=== PATIENT | female | born 1990 | race African-American/Black ===

== ENCOUNTER 2022-04-13 21:32 | Emergency (ER) | payer OTHER, MEDICARE, SELFPAY ==
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
--- NOTE | ~2022-04-13 | XR_ITS ---
EXAMINATION: XR shoulder LT min 2V DATE: 04/14/2022 01:44 INDICATION: Left shoulder pain TECHNIQUE: AP internally and externally rotated, AP oblique externally rotated and transscapular Y vi ews of the left shoulder were obtained. COMPARISON: None FINDINGS: Normal alignment. No fracture. Glenohumeral joint is normal. Acromioclavicular joint is normal. Soft tissues are unremarkable. Visualized portions of the lungs are clear. Cardiomediastinal silhouette w ithin normal limits for AP technique. Median sternotomy wires are present along with a single lead ca rdiac pacemaker/defibrillator with lead tip projecting over the right ventricle. IMPRESSION: No osseous abnormality. Reviewed, dictated and finalized at location A. IMPRESSION: No osseous abnormality.
[2022-04-13 22:07] VITALS: BP 130/65; PULSE 60; RESP 16; TEMP 36.7; O2SAT 100
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
[2022-04-14 01:56] VITALS: BP 116/53; PULSE 54; RESP 16; O2SAT 100
[2022-04-14] MEDS: ACETAMINOPHEN 500 MG TABLET 1000 MG PO (01:58)
[2022-04-14 03:41] VITALS: BP 114/56; PULSE 62; RESP 16; O2SAT 100
== END 2022-04-14 03:42 | disposition home or self-care (01) ==
PROVIDERS: Emergency Provider General Practice
DX: S16.1XXA Strain of muscle, fascia and tendon at neck level, initial encounter (principal); V43.52XA Car driver injured in collision with other type car in traffic accident, initial encounter; Z95.0 Presence of cardiac pacemaker
CPT/HCPCS: 72125; 73030; 99284; A9270

== ENCOUNTER 2023-11-27 22:28 | Emergency (ER) | payer MEDICARE, SELFPAY ==
[2023-11-27 22:34] VITALS: BP 131/63; PULSE 81; RESP 19; TEMP 36.6; O2SAT 100
[2023-11-27 22:59] LABS: Add Urine Microscopic? YES; Appearance Urine Turbid (Clear); Bacteria Urine 4+ /hpf; Bilirubin Urine Negative (Negative); Blood Urine 3+ (Negative); Color Urine Yellow (Yellow); Glucose Urine UA Negative (Negative); Ketones Urine Negative (Negative); Leukocyte Esterase Ur 3+ LEU/UL (Negative); Nitrate Urine Positive (Negative); Non Pathogenic Casts 0-2; Protein Urine 2+ mg/dL (Negative); RBC Urine >100 /hpf (0-2); Specific Grav Ur 1.014 (1.001-1.035); Squamous Epithelial Cell Urine Occasional /hpf (Few); WBC Urine >100 /hpf
--- NOTE | 2023-11-27 23:29 | ED.GENADULT ---
HPI - General Adult General Chief complaint: Urogenital-Female Stated complaint: burning with urination, abd pain Time Seen by Provider: 11/27/23 22:56 History of Present Illness HPI narrative: this is a 33-year-old female presenting with pain on urination. Associated with left-sided flank pain. denies nausea/diarrhea. She has history of UTIs. Related Data Allergies Allergy/AdvReac Type Severity Reaction Status Date / Time No Known Allergies Allergy Verified 11/27/23 22:29 Exam Narrative: APPEARANCE: No apparent distress. well-appearing Head: atraumatic. EYES: EOMI, NOSE: Atraumatic NECK: Trachea midline RESPIRATORY: No increased rate of breathing CARDIOVASCULAR: RRR, ABDOMINAL: Abdomen soft nontender no guarding rebound, left CVA tenderness MUSCULOSKELETAl: No obvious deformities NEURO: Alert. Moving 4/4 extremities SKIN:: Warm, dry. Normal color PSYCHIATRIC: Normal affect Course Vital Signs Vital signs: Vital Signs Temperature 97.9 F 11/27/23 22:34 Pulse Rate 81 11/27/23 22:34 Respiratory Rate 19 11/27/23 22:34 Blood Pressure 131/63 11/27/23 22:34 Pulse Oximetry 100 11/27/23 22:34 Oxygen Delivery Room Air 11/27/23 22:34 Temperature 97.9 F 11/27/23 22:34 Pulse Rate 81 11/27/23 22:34 Respiratory Rate 19 11/27/23 22:34 Blood Pressure 131/63 11/27/23 22:34 Pulse Oximetry 100 11/27/23 22:34 Oxygen Delivery Room Air 11/27/23 22:34 Medical Decision Making [facility] Narrative Medical decision making narrative: -Course: well-appearing 33-year-old female presenting with urinary symptoms at left-sided CVA pain. Treated with cefdinir. Vital signs stable. Discharged with outpatient follow-up return precautions. -DDX includes but is not limited to: UTI, pyelo, STD muscle strain -Co-morbidities complicating care: breast-feeding -Independent interpretation of studies: urine indicative of infection -Interventions: cefdinir -Shared decision making / Disposition:discharged. -RX Cefdinir 300 mg b.i.d. times 10 days Vital Signs Vital Signs: Vital Signs Temperature 97.9 F 11/27/23 22:34 Pulse Rate 81 11/27/23 22:34 Respiratory Rate 19 11/27/23 22:34 Blood Pressure 131/63 11/27/23 22:34 Pulse Oximetry 100 11/27/23 22:34 Oxygen Delivery Room Air 11/27/23 22:34 Temperature 97.9 F 11/27/23 22:34 Pulse Rate 81 11/27/23 22:34 Respiratory Rate 19 11/27/23 22:34 Blood Pressure 131/63 11/27/23 22:34 Pulse Oximetry 100 11/27/23 22:34 Oxygen Delivery Room Air 11/27/23 22:34 Lab Data Labs: Lab Results 11/27/23 Range/Units 22:36 Urine Color Yellow (Yellow) Urine Appearance Turbid H (Clear) Urine pH 6.0 (5.0-9.0) Ur Specific [place] 1.014 (1.001-1.035) Urine Protein 2+ H (Negative) mg/dL Urine Glucose (UA) Negative (Negative) mg/dL Urine Ketones Negative (Negative) mg/dL Ur Blood (Man) 3+ H (Negative) Urine Nitrate Positive H (Negative) Urine Bilirubin Negative (Negative) Urine Urobilinogen 1.0 (<2.0) mg/dL Leukocyte Esterase Rfl 3+ H (Negative) FELIPA/UL Urine RBC >100 H (0-2) /hpf Urine WBC >100 H /hpf Ur Squamous Epith Cells Occasional (Few) /hpf Urine Bacteria 4+ H /hpf Urine Casts 0-2 UCG Bedside Result Negative Reference Range: Negative Discharge Plan Discharge Clinical Impression: Pyelonephritis Patient Disposition: Home, Self-Care Condition: Stable Instructions: Antibiotic Form, Kidney Infection (ED) Additional Instructions: take cefdinir as instructed. Use Motrin and Tylenol for pain control. Return to the emergency department if you develop severe abdominal pain, are unable tolerate p.o., or feel like your condition is getting worse. Follow-up with primary care physician. Prescriptions: New cefdinir 300 mg capsule 300 mg PO Q12H Qty: 20 0RF Fol
[2023-11-27] MEDS: CEFDINIR 300 MG CAPSULE PO (23:48)
[2023-11-27 23:49] VITALS: BP 128/70; PULSE 80; RESP 18; O2SAT 99
== END 2023-11-27 23:51 | disposition home or self-care (01) ==
LOC: ANHED 23:37
PROVIDERS: Physician Assistant; Emergency Provider Emergency Medicine
DX: N12 Tubulo-interstitial nephritis, not specified as acute or chronic (principal)
CPT/HCPCS: 81001; 81025; 87077; 87086; 87088; 87186; 99283; A9270

== ENCOUNTER 2024-10-18 00:37 | Emergency (ER) | payer MEDICARE, SELFPAY ==
--- NOTE | ~2024-10-18 | CT_ITS ---
EXAMINATION: CT chest abdomen pelvis w con DATE: 10/18/2024 6:32 [employer] INDICATION: Chest and abdomen pain. TECHNIQUE: Computed tomography (CT) of the chest, abdomen, and pelvis was performed with 100 cc Omnip aque 350 intravenous contrast. The dose-length product was 398.84 mGy-cm. Automated exposure control and iterative reconstruction technique were employed. COMPARISON: None FINDINGS: CHEST CT: Borderline heart size. No thoracic lymphadenopathy. No evidence for aortic aneurysm or dissection. No significant pleural or pericardial effusion. There is a left-sided AICD, lead tip in the right ventr icle.. Status post median sternotomy for CABG. No focal airspace consolidation. No pneumothorax. No e ndobronchial lesions. No suspicious pulmonary nodules or masses. ABDOMEN/PELVIS CT: The liver, spleen, pancreas, adrenal glands and kidneys are unremarkable. Gallbladder is present. Non obstructive bowel gas pattern. No abnormal pelvic masses or fluid collections. No acute osseous abnor mality. IMPRESSION: 1. No acute abnormality of the chest or abdomen. Reviewed, dictated and finalized at location A. [employer]
--- NOTE | 2024-10-18 00:38 | ECG_ITS ---
Test Date: 2024-10-18 00:46:33 Measurements Intervals [place] Rate: 60 P: 7 RI: 164 QRS: 101 QRSD: 176 T: 85 QT: 458 QTc: 458 Interpretive Statements SINUS RHYTHM MARKED RIGHT AXIS DEVIATION [QRS AXIS > 100] RIGHT BUNDLE BRANCH BLOCK [120+ ms QRS DURATION, UPRIGHT V1, 40+ ms S IN I/aVL/V4/V5/V6] No previous ECG available for comparison Electronically Signed On 10-18-2024 15:56:35 BLOGS MANAGER by Mario Chaidez M.D.
--- OUTSIDE RECORDS SUMMARY | 2024-10-18 00:40 | XMS_ITS | Referral Summary ---
Author Organization [facility] Address [address] [place] [address] Care Team Providers Care Expansion Envelope Maker Hand Name Role Phone Lisa Mehta NP Primary Care Provider [phone] Syeda Vidal BLUEPRINTER Unavailable [phone] Encounters Date Type Department Care Team Description 10/17/2024 Telephone [facility] Primary Care at [address] [phone] Lisa Mehta NP Medical Question/Miscellane ous 10/04/2024 10:59 AM PYTHON DEVELOPER - 10/04/2024 11:59 PM PYTHON DEVELOPER Hospital Encounter [facility] Cardiac Diagnostic Lab [address] [address] 8th [place] [address] Tetralogy of Fallot s/p repair Discharge Disposition: Discharge to home or self care 09/26/2024 Orders Only [facility] Cardiology [address] [facility] 8th [place] [address] [place] [address] Jesse Matos MD 08/10/2024 Orders Only [facility] Primary Care at [address] [phone] Lisa Mehta NP 08/09/2024 8:48 PM PYTHON DEVELOPER - 08/09/2024 11:59 PM PYTHON DEVELOPER Hospital Encounter [address] [address] Iron deficiency; Vitamin D deficiency; Thyroid disorder screen; Lipid screening; Screening for endocrine, nutritional, metabolic and immunity disorder Discharge Disposition: Discharge to home or self care 08/09/2024 11:45 AM PYTHON DEVELOPER Lab [facility] Outpatient Lab at [address] [phone] Anxiety with depression (Primary Dx) 08/09/2024 11:30 AM PYTHON DEVELOPER Office Visit [facility] Primary Care at [address] [phone] Lisa Mehta NP Anxiety with depression (Primary Dx); Body aches; Iron deficiency; Screening for endocrine, nutritional, metabolic and immunity disorder; Lipid screening; Thyroid disorder screen; Vitamin D deficiency 07/31/2024 3:39 PM PYTHON DEVELOPER - 07/31/2024 11:59 PM PYTHON DEVELOPER Hospital Encounter [address] [address] Tetralogy of Fallot s/p repair Discharge Disposition: Discharge to home or self care 07/31/2024 3:45 PM PYTHON DEVELOPER Lab [facility] Endocrinology Metabolism and Lipid [address] [place] [address] [place] [address] [place] [address] Tetralogy of Fallot s/p repair 07/31/2024 2:30 PM PYTHON DEVELOPER Office Visit [facility] Cardiology [address] [place] [address] [place] [address] [place] [address] Syeda Vidal NP Tetralogy of Fallot s/p repair (Primary Dx); History of pulmonic valve replacement; ICD (implantable cardioverter-defibr illator) in place; Palpitations; Maternal Tetraology of Fallot S/P Repair W/ ICD in place from Last 3 Months Allergies No known active allergies Medications vit 61-grvs-tijul-dha 27mg iron- 800 mcg-250 mg capsule Take by mouth Active lancets 33 gauge miscIndications:H istory of gestational diabetes mellitus (GDM),Supervision of high-risk , first trimester,Abnorma l glucose tolerance test CHECK GLUCOSE FASTING AND ONE HOUR AFTER EACH MEAL 120 each 6 05/06/20 Active Additional Information Patient not taking.Reported on 08/09/2024 Accu-Chek Softclix Lancets lancets CHECK GLUCOSE FASTING AND 1 HOUR AFTER EACH MEAL 05/06/20 Active norethindrone (MICRONOR) 0.35 mg tabletIndications : Contraception Take 1 tablet (0.35 mg total) by mouth daily 84 tablet 3 08/18/20 Active aspirin 81 mg enteric coated tablet Take 1 tablet (81 mg total) by mouth daily Active multivitamin tabletIndications :Vitamin Deficiency Prevention Take 1 tablet by mouth Active ferrous sulfate 325 mg (65 mg of elemental iron) tabletIndications :Iron Deficiency Anemia Take 1 tablet (325 mg total) by mouth daily with breakfast Active ergocalciferol (VITAMIN D) 50,000 unit capsule Take 1 capsule (50,000 Units total) by mouth once a week 12 capsule 1 08/11/20 24 Active buPROPion XL (WELLBUTRIN XL) 150 mg 24 hr tablet Take 1 tablet (150 mg total) by mouth daily 90 tablet 1 10/02/19 25 Active buPROPion XL (WELLBUTRIN XL) 150 mg 24 hr tablet Take 1 tablet (150 mg total) by mouth daily 025 Discontin ued(Reord er) Active Problems Problem Noted Date Diagnosed Date Short cervical length during in second trimester 02/12/2023 Overview (06/18/2023): Cervical length: 02/12/23 21.6 mm. Cervical exam: internally closed 03/12/23: 26.1mm - s/p counseling, declines vaginal progesterone Plan - s/p CL screening Assessment & Plan (02/12/2023 2:48 PM CDT): Cervical length: 02/12/23 21.6 mm. Cervical exam: internally closed Short cervix: We discussed the implications of the diagnosis of a short cervix in women without a history of . We discussed that while the risk of premature delivery increases once the finding of a midtrimester short cervix is confirmed, a large proportion of women will still go on to deliver at term (50- 75%). The only proven strategy to reduce the risk of in the setting of a short cervix diagnosed in a woman with out a history of a is vaginal progesterone. In one randomized control trial vaginal micronized progesterone, 200 mg daily, was associated with a 44% reduction in spontaneous PTB < 34 weeks among asymptomatic women with a CL of 15 mm or less at 18-25 weeks (Kuldeep, 2007). Another study, using a different formulation of progesterone, demonstrated a similar risk reduction in women between 19-24 weeks with a cervical length less than 20 mm (Brian, 2011). - discussed vaginal progesterone therapy. This medication was typically administered at night prior to going to bed. Many women experience an increase in vaginal discharge with the use of this medication but significant side effects are rare. This therapy should be continued until 37 weeks gestation. We also reviewed signs and symptoms of labor that should prompt a phone call to a physician for possible evaluation. Plan - vaginal progesterone 200mg nightly - repeat TVUS every 1-2 weeks until 24 weeks History of section complicating pregnan cy 11/17/2022 Overview (06/02/2023): LTCS in G3 at [facility] for NRFS Plan desires TOLAC, s/p counseling regarding risk of uterine rupture and recommendation for epidural during labor Assessment & Plan (06/18/2023 10:06 AM CDT): LTCS in G3 at [facility] for NRFS Plan desires TOLAC, s/p counseling regarding risk of uterine rupture and recommendation for epidural during labor Assessment & Plan (02/12/2023 2:51 PM CDT): For discussion of TOLAC after viability Low grade squamous intraepit h lesion on cytologic smear cervix (lgsil), HPV Neg 10/28/2022 Overview (06/02/2023): 10/2023 repeat pap due Anxiety with depression 04/26/2022 Overview (06/23/2023): Mostly in the setting of limited partner support Previously saw a therapist and was on wellbutrin- plans to reestablish with therapy Continue to monitor symptoms closely, aware of risk of pp depression/anxiety Assessment & Plan (08/09/2024 12:33 PM PYTHON DEVELOPER): Feels like anxiety has become more apparent with having children. She has Bupropion that was rx'd from OBGYN. She is going to try re-starting and if no improvement we can consider adjusting the dose or trying a different medication. Assessment & Plan (06/23/2023 10:36 AM CDT): 45 minutes providing emotional support today. Encouraged she continue with therapy. Offered restarting meds but pt declines at this time. Will continue to monitor closely. Assessment & Plan (05/28/2022 10:03 PM CDT): PHQ Screening PHQ-2 Total Score (If total score is 3 or more points, staff should administer the PHQ-9): 0 PHQ-9 Total Score: 1, YESSENIA-7 Total Score: 3. Symptoms are improving. SI/HI absent. Likely the etiology of her low libido. - cont therapy. - Discussed that SI is an emergency. Provided with crisis resources. - Counseled regarding strategies to reduce stress including physical activity. Assessment & Plan (04/26/2022 11:02 PM CDT): PHQ Screening PHQ-2 Total Score (If total score is 3 or more points, staff should administer the PHQ-9): 1 PHQ-9 Total Score: 1, YESSENIA-7 Total Score: 2. Symptoms are worsening. SI/HI absent. Likely the etiology of her low libido. - Pt was counseled regarding duration to effect, duration of treatment, side effects including withdrawal. After discussion of treatment approaches for depression, pt gave informed consent to start bupropion . - Recommended therapy and counseling. - Discussed that SI is an emergency. Provided with crisis resources. - Counseled regarding strategies to reduce stress including physical activity. Palpitations 04/26/2018 Assessment & Plan (07/31/2024 3:14 PM PYTHON DEVELOPER): Stable denies increase in frequency. ICD (implantable cardioverter-defibrillator) in place 04/26/2018 Assessment & Plan (07/31/2024 3:12 PM PYTHON DEVELOPER): Stable, no therapies. Sees Dr. Matos in August 2024. Assessment & Plan (09/03/2023 11:55 AM PYTHON DEVELOPER): Stable, no therapies. Saw Dr. Matos in July no changes were made. Recurrent herpes simplex 05/05/2017 Overview (06/18/2023): Last outbreak in 2016. Prescribed acyclovir TID, sent to pt's preferred pharmacy (06/26) - On suppression - physical exam when admitted to L&D Assessment & Plan (06/18/2023 10:05 AM CDT): Last outbreak in 2016. Prescribed acyclovir TID, sent to pt's preferred pharmacy (06/26) - On suppression - physical exam when admitted to L&D Assessment & Plan (02/12/2023 2:47 PM CDT): For suppression at 36 weeks Assessment & Plan (07/25/2021 11:26 AM CDT): - Continue suppression Assessment & Plan (07/21/2021 12:03 AM CDT): Patient to reminded to take acyclovir PPX. Will need bright light exam on admission. 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 She had a pulmonary homograft in November of 2010. 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 She had inducible ventricular arrhythmia in February of 2012, she subsequently received a single-chamber [employer] defibrillator system. This was originally implanted for primary prevention of sudden cardiac . - 2013: 30 weeks and was noted to have an episode of VT terminated with antitachycardia pacing - CARPEG and Stefany scores are 15% and 10%, respectively. - Last ICD check 10/02/22 had rare events -- 1-2 beats nonsustained VT and two episodes of SVT vs sinus tach -- battery and leads work well, follows in cardiac rhythm clinic (Dr. Matos) Recommendations [x] Baseline PEC labs 11/19/22- complete and wnl [x] LD ASA 81mg initiated [x] BNP, Echo qTrimester- 1T complete, 2nd tri BNP: 45 3rd Tri: <50 done 05/20 [x] Specialized anatomic survey [x] echocardiogram nml [] Next cardiology 04/29- pt no showed- rescheduled 06/22 but cancelled again and asked to reschedule- echo completed- 06/18 [x] anesthesia consult 3rd trimester- complete - Serial growth ultrasounds starting at 24 weeks - Delivery by 39 weeks GA- requested Assessment & Plan (07/31/2024 3:17 PM PYTHON DEVELOPER): ToF sp definitive repair in 1990, subsequent PI and RV dilation with mildly reduce RV ejection fraction and 23 mm pulmonary homograft November 2010. With some increased LEE today in clinic NYHA class II findings. (SP delivery 07/07/2023. With increased gradients on 05/2023 ECHO, suspected physiologic in . RV function stable at that time.) Oral contraception, not planning any additional pregnancies. ASA and SBE> ECHO now, Bnp and BMP today. Dr. Joel in 6 months. Assessment & Plan (09/03/2023 11:57 AM PYTHON DEVELOPER): ToF sp definitive repair in 1990, subsequent PI and RV dilation with mildly reduce RV ejection fraction and 23 mm pulmonary homograft November 2010. SP delivery 07/07/2023. With increased gradients on 05/2023 ECHO, physiologic in . RV function stable, with no S/S of heart failure, NYHA class I findings. ASA and SBE ECHO in 6 months, same day as Dr. Joel Assessment & Plan (06/18/2023 10:04 AM CDT): The patient has a history of tetralogy of fallot s/p definitive repair in 1990 with subsequent pulmonary insufficiency and dilated right ventricular systolic function. She had a pulmonary homograft in November of 2010. 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 She had inducible ventricular arrhythmia in February of 2012, she subsequently received a single-chamber [employer] defibrillator system. This was originally implanted for primary prevention of sudden cardiac . - 2014: 30 weeks and was noted to have an episode of VT terminated with antitachycardia pacing - CARPEG and Stefany scores are 15% and 10%, respectively. - Last ICD check 10/02/22 had rare events -- 1-2 beats nonsustained VT and two episodes of SVT vs sinus tach -- battery and leads work well, follows in cardiac rhythm clinic (Dr. Matos) Recommendations [x] Baseline PEC labs 11/19/22- complete and wnl [x] LD ASA 81mg initiated [x] BNP, Echo qTrimester- 1T complete, 2nd tri BNP: 45 3rd Tri: <50 done 05/20 [x] Specialized anatomic survey [x] echocardiogram nml [] Next cardiology 04/29- pt no showed, echo to follow [x] anesthesia consult 3rd trimester- complete - Serial growth ultrasounds starting at 24 weeks - Delivery by 39 weeks GA- requested Assessment & Plan (02/12/2023 3:34 PM CDT): ToF sp definitive repair in 1990, subsequent PI and RV dilation with mildly reduce RV ejection fraction and 23 mm pulmonary homograft November 2010. Now at 18 weeks. With stable RV function and mild PI on ECHO in December 2022. ASA and SBE, BNP today and ECHO at 28 weeks, Dr. Joel same day. Syeda post partaum in July with Dr. Matos same day. Assessment & Plan (02/12/2023 3:01 PM CDT): The patient has a history of tetralogy of fallot s/p definitive repair in 1990 with subsequent pulmonary insufficiency and dilated right ventricular systolic function. ??She had a pulmonary homograft in November of 2010. 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 ??She had inducible ventricular arrhythmia in February of 2012, she subsequently received a single-chamber [employer] defibrillator system. ??This was originally implanted for primary prevention of sudden cardiac . - 2014: 30 weeks and was noted to have an episode of VT terminated with antitachycardia pacing - CARPEG and Stefany scores are 15% and 10%, respectively. - Last ICD check 10/02/22 had rare events -- 1-2 beats nonsustained VT and two episodes of SVT vs sinus tach -- battery and leads work well, follows in cardiac rhythm clinic (Dr. Matos) 02/12/23 saw cardiology: no specific follow-up per Missy' report however their note is not yet available Recommendations [x] Baseline PEC labs 11/19/22- complete and wnl [x] LD ASA 81mg initiated [] BNP, Echo qTrimester- 1T complete, 2nd tri BNP ordered (remind with GTT) [] Specialized anatomic survey [] echocardiogram- 22-24 weeks [] Next cardiology 04/29 - Serial growth ultrasounds starting at 24 weeks -anesthesia consult 3rd trimester - Delivery by 39 weeks GA Assessment & Plan (12/15/2022 2:19 PM CDT): Denies issues today. Has cardiac appt scheduled. Assessment & Plan (01/04/2022 9:32 PM CDT): Status post definitive repair in 1990. Subsequent pulmonic regurgitation and RV dilatation with mildly reduced right ventricular ejection fraction. Pulmonary valve replacement with a 23-mm pulmonary homograft on December 02 2010 together with RVOT reconstruction. - TTE 04/2019 with normal function of bioprosthetic PVR - Cont f/u with cardiology - Cont ASA 81mg every day Assessment & Plan (07/25/2021 11:26 AM CDT): - Following with maternal cardiology - s/p anesthesia consult - Plan for induction of labor on 07/27 Assessment & Plan (07/21/2021 12:01 AM CDT): Asymptomatic. Reviewed that if need for CS, will need magnets in OR with external defibrillating pads with tele for 24h after delivery on L&D. Assessment & Plan (05/15/2021 10:06 AM CDT): Reports heart flutters for the last 2 weeks that last 10-15 minutes at a time. They are not associated with SOB or chest pain but she has noticed increased SOB as the progresses. When she has been on her feet all day she has sock lines. Will discuss with Dr. Galindo prior to her 05/20 visit. Assessment & Plan (04/17/2021 11:33 AM CDT): Continue close monitoring of SOB (stable) and heart flutters. Strict WAC precautions reviewed. Will call if symptoms continue or increase in frequency. Assessment & Plan (06/22/2019 5:28 PM CDT): Status post definitive repair in 1990. Subsequent pulmonic regurgitation and RV dilatation with mildly reduced right ventricular ejection fraction. Pulmonary valve replacement with a 23-mm pulmonary homograft on December 02 2010 together with RVOT reconstruction. - TTE 04/2019 with normal function of bioprosthetic PVR - Cont f/u with Dr. Mcleod - Cont ASA 81mg every day Resolved Problems Problem Noted Date Diagnosed Date Resolved Date care following section 07/06/2023 08/18/2023 Overview (07/11/2023): # ID: Afebrile. No signs/symptoms of infection. #HSV: BLE neg in OR # Heme/PPH: Pre-op Hb 10.8. PPH d/t uterine extension. EBL 1500 mL and received 1 unit pRBC intra-op. POD0 Hb 7.3 and symptomatic. Received 1L bolus and IV iron. POD#1 Hgb 6.1. Symptomatic. Transfused 1 unit pRBC; post-transfusion hgb 7.8 # CV/Pulm: Vital signs stable, within normal limits. # History of tetralogy of fallot s/p definitive repair in 1990 with subsequent pulmonary insufficiency and dilated right ventricular systolic function. She had a pulmonary homograft in November of 2010. 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 She had inducible ventricular arrhythmia in February of 2012, she subsequently received a single-chamber [employer] defibrillator system. This was originally implanted for primary prevention of sudden cardiac . CARPEG and Stefany scores are 15% and 10%, respectively.Last ICD check 10/02/22 had rare events -- 1-2 beats nonsustained VT and two episodes of SVT vs sinus tach -- battery and leads work well, follows in cardiac rhythm clinic (Dr. Matos). Per last cardiology note, telemetry/judicious fluids not required. Pre-load dependent. Volume overload IS NOT anticipated 24-72 hours post-delivery. Last TTE 05/2023 EF 73%, stable from prior. # GI/: Tolerating PO. Voiding spontaneously. # Pain: Controlled with above regimen. Post-anesthesia itching not resolved with benadryl, will try IV Zofran. 07/09 Itching resolved # MOC: Desires nexplanon placement at PP visit, declines bridge # MOF: . Urine drug screen not indicated. Patient informed of results: N/A. # Post DVT prophylaxis: The patient has the following MAJOR risk factors PPH (EBL >/=1000) requiring blood transfusion or procedure (D&C or IR) and cardiac disease and the following MINOR risk factors BMI 30-39, delivery, and parity >/=3. enoxaparin 40 mg daily ordered for VTE prophylaxis. # Disposition: Follow up task sent to [facility] scheduling pool. Desires discharge home today. History of gestational diabe sanford mellitus (GDM) 11/20/2022 08/18/2023 Overview (05/20/2023): History of gestational diabetes in her G3 . Previously counseled Plan - A1c ordered 3/2 - 5.4 - failed 1 hour, 1 week of accu checks wnl Assessment & Plan (06/18/2023 10:05 AM CDT): History of gestational diabetes in her G3 . Previously counseled Plan - A1c ordered 3/2 - 5.4 - failed 1 hour, 1 week of accu checks wnl Assessment & Plan (02/12/2023 2:52 PM CDT): History of GDM in G3 . A1C 5.4 in the first trimester. For routine 2nd trimester glucose screening Supervision of high-risk pre gnancy, first trimester 11/17/2022 08/18/2023 Overview (07/01/2023): [x] Full [facility] Care; [x] Blue Team Referring Provider: Self Referral. Prior [facility] patient [] or Medicare Insurance [x] Dating Criteria: first trimester US [x] Labs: Rh [O+], Ab [NEED - labcorp unable to ad on antibody screening], Rubella [immune], HIV [[facility] states pending], HepBSAg [nonreactive], RPR [nonreactive], Hep C [nonreactive], Varicella [immune], GC/CT [negative/negative] [x] Genetic Screening: NIPT low risk 12/15/2022 [x] CBC/Hgb: 11.1/34.4/248 [x] Early 1hr GTT (if indicated), A1c: 5.4 [x] UCx: sent 12/31/2022- mixed simon, macrobid [x] Pap: 10/16/22: LSIL; HPV negative [x] LD ASA (if indicated) starting at 12 weeks: started [] EPDS [ ]; PNBHS referral (if indicated) 2nd Tri Labs: [x] Anatomy ultrasound: complete 02/12/23 [x] CBC: 10.5/30.7/193K 1hr gtt at 24-28wks: 184- pt aware and 3 hr gtt ordered [] Flu Shot (May-Aug): counseled on risks of maternal and and pt declines [x] Tdap (27-36wks): 05/06/2023 [] COVID Vaccine: counseled on risks of maternal and and pt declines 3rd Tri Labs: [x] CBC/HIV/RPR: CBC: 10.3/32.9/175, RPR: nonreactive, HIV: nonreactive - done 05/20 [x] GBS: POSITIVE- positive urine culture [] testing: currently not indicated Counseling [x] MOD: desires TOLAC- scheduled for 1018 PM per patients request, letter sent - bnw [x] Place of delivery: [facility] [x] Last clinic visit SVE: FT/3/posterior [x] IOL start agent: likely cook catheter in the setting of a prior C/S, pt willing to get epidural first to help with placement [x] Epidural: desires, reviewed recommendation for early placement [] Consents signed: upon admission [x] MOC: s/p counseling and desires nexplanon, possibly wants to wait until 6 weeks pp [x] Method of feeding: breast [x] Hardness Inspector: [x] PP Depression Discussed: s/p counseling, previously on Wellbutrin and saw a therapist 2/2 limited partner support. Strongly encourage she reestablish prior to delivery. Patient knows she can call our office anytime. Denies SI/HI. Assessment & Plan (06/18/2023 10:08 AM CDT): RTC weekly, already scheduled [x] Full M Care; [x] Blue Team Referring Provider: Self Referral. Prior MFM patient [] or Medicare Insurance [x] Dating Criteria: first trimester US [x] Labs: Rh [O+], Ab [NEED - [facility] unable to ad on antibody screening], Rubella [immune], HIV [[facility] states pending], HepBSAg [nonreactive], RPR [nonreactive], Hep C [nonreactive], Varicella [immune], GC/CT [negative/negative] [x] Genetic Screening: NIPT low risk 12/15/2022 [x] CBC/Hgb: 11.1/34.4/248 [x] Early 1hr GTT (if indicated), A1c: 5.4 [x] UCx: sent 12/31/2022- mixed simon, macrobid [x] Pap: 10/16/22: LSIL; HPV negative [x] LD ASA (if indicated) starting at 12 weeks: started [] EPDS [ ]; PNBHS referral (if indicated) 2nd Tri Labs: [x] Anatomy ultrasound: complete 02/12/23 [x] CBC: 10.5/30.7/193K 1hr gtt at 24-28wks: 184- pt aware and 3 hr gtt ordered [] Flu Shot (May-Aug): [x] Tdap (27-36wks): 05/06/2023 [] COVID Vaccine: 3rd Tri Labs: [x] CBC/HIV/RPR: CBC: 10.3/32.9/175, RPR: nonreactive, HIV: nonreactive - done 05/20 [x] GBS: POSITIVE- positive urine culture [] testing: currently not indicated Counseling [x] MOD: desires TOLAC- scheduled for 07/07 PM per patients request, letter sent - bnw [x] Place of delivery: [facility] [] Last clinic visit SVE: [] IOL start agent: [x] Epidural: desires, reviewed recommendation for early placement [] Consents signed: upon admission [x] MOC: s/p counseling and desires nexplanon, possibly wants to wait until 6 weeks pp [x] Method of feeding: breast [x] Hardness Inspector: [] PP Depression Discussed: Assessment & Plan (02/12/2023 2:51 PM CDT): Reassuring and complete anatomic survey today. Missed period 05/28/2022 02/10/2023 BV (bacterial vaginosis) 05/28/2022 Assessment & Plan (05/28/2022 10:02 PM CDT): Counseled regarding appropriate vulvar hygiene measures. Low libido 05/28/2022 02/10/2023 Assessment & Plan (05/28/2022 10:04 PM CDT): Rec that she see a therapist that specializes in this. Given info today Urinary tract infection with hematuria 01/04/2022 02/10/2023 Assessment & Plan (01/04/2022 9:32 PM CDT): Incomplete relief of sx with Macrobid, though some of her sx may be due to bacterial vaginosis. - Rec f/u with generator technician if no improvement of sx. - urine culture to guide further tx. COVID-19 vaccine dose declined 01/04/2022 02/12/2023 Assessment & Plan (05/28/2022 10:02 PM CDT): Discussed risks of covid-19 disease and the benefits, safety, and common and serious potential side effects of vaccination. I strongly recommended vaccination, but pt declined. They understand they can contact me with any additional questions. Assessment & Plan (01/04/2022 9:33 PM CDT): Discussed risks of covid-19 disease and the benefits, safety, and common and serious potential side effects of vaccination. I strongly recommended vaccination, but pt declined. They understand they can contact me with any additional questions. care following delivery 07/27/2021 11/17/2022 Overview (08/01/2021): # ID: Afebrile. No signs/symptoms of infection. #COVID-19: Negative # Heme: EBL 1000 mL. Pre-op hgb 11.6 > POD#1 8.8. No symptoms acute blood loss anemia. D/C with home Fe # CV/Pulm: Vital signs stable, within normal limits. 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 Has ICD in place. Most recent ech 06/12 w EF 63%. BioPVR with physiologic gradients and mild PI. Completed telemetry for 24hr on . No signs or symptoms of volume overload. # GI/: Tolerating PO. Voiding spontaneously. # GDMA1: diet controlled, fasting BG on PPD#1: 124. For further work-up at 6wk visit. # Pain: Well controlled with new regimen. # Post DVT prophylaxis: The patient has the following MAJOR risk factors cardiac disease and the following MINOR risk factors BMI 30-39. enoxaparin 40 mg daily ordered for VTE prophylaxis. # MOC: Progestin-only pills # MOF: # COVID Vaccination Status: Not previously received: declines after counseling. # Disposition: Follow up scheduled with M. Desires discharge home today. GBS (group B Streptococcus c quentin), +RV culture, currently 07/07/2021 11/17/2022 Gestational Diabetes- A1 05/27/2021 Overview (07/16/2021): Diagnosed 05/23 with abnormal 3 hour Will send supplies to start checking qid accu checks- will send to MFM RN weekly for review [x] counseling [x] diabetes education- completed 06/20 CURRENT REGIMEN: 07/10/21 Diet controlled - occ hyperglycemia from dietary indiscretion. Discussed again today use of exercise, decreasing carbs Assessment & Plan (07/25/2021 12:36 PM CDT): - no logs today but reports good glycemic control - for 2hr OGTT Assessment & Plan (07/20/2021 11:59 PM CDT): BG log reviewed, continue diet control. Will bring log in 1 week at next visit. Aware of importance of fasting 2h GTT at 6 weeks PP. Assessment & Plan (05/28/2021 5:49 PM CDT): Counseled today for newly diagnosed gDM. Reviewed need for qid accu checks. Discussed goal BS and briefly reviewed diet recommendations. She is scheduled for diabetes ed/control systems specialist. We reviewed importance of tight glycemic control and possible need for medication. We discussed that insulin the the standard of care in but that metformin could also be an option. We will plan to review her BS logs weekly. Reviewed a risk of diabetes in is LGA fetus and risks associated with LGA include possible need for c/s, vacuum/forcep assisted vaginal delivery, shoulder dystocia and pp hemorrhage. Reviewed risk of hypoglycemia in the . Also discussed risk for T2DM and reviewed importance of 2 hour gtt and a healthy lifestyle with good PCP f/u. History of maternal cardiomy opathy, currently , first trimester 12/16/2020 02/10/2023 Supervision of high-risk pre gnancy, unspecified trimester 12/16/2020 11/17/2022 Overview (07/04/2021): [x] Full MFM Care; [] Red Team [x] Blue Team Referring Provider: Self Referral. (Primary OB Ann Proctor [phone]) [x] Dating Criteria: LMP 10/19/19 JANET 07/26/21 [x] Labs: Rh [O pos], Ab [NEG ], Rubella [Immune], HIV [NR], HepBSAg [NR], RPR [NR], GC/CT [NEG/NEG] [x] Genetic Screening: FLK DS 1:6600, TRI 18 1:10K [x] CBC: 10.8/33.1/231K [x] Pap: 12/01/19 NILM [x] LD ASA (if indicated) starting at 12 weeks: yes 2nd Tri Labs: [x] Anatomy ultrasound: ECIF, otherwise normal; counseled 03/17/2021, declined amnio [x] CBC: 10.3/31.9/176K 1hr gtt at 24-28wks: 174, patient aware, 3hr GTT; 64/181/171/156 and Ferritin [33] [x] Flu Shot (May-Aug):06/26/2021 MS [x] Tdap (27-36wks) 05/15/2021 TH 3rd Tri Labs: [x] CBC/HIV/RPR: 10.7/33.1/162/HIV: NR/ RPR: NR [x] GBS: POS [x] COVID testing: arranged at [facility]- letter in chart [] COVID vaccine: declines 06/12/21, discussed availability PP Counselling [x] MOD: IOL at 39.1 on 07/27/21 @ 2200- letter in chart [] Needs to schedule visits [x] Place of delivery: [facility] [x] MOC: pills [x] Method of feeding: breast [] Hardness Inspector: [] PP Depression Discussed: Assessment & Plan (07/25/2021 12:36 PM CDT): - IOL on 07/27/21 Assessment & Plan (07/21/2021 12:02 AM CDT): Aware she is GBS pos and will need PCN in labor. Secondary amenorrhea 08/25/2020 022 Assessment & Plan (08/25/2020 7:50 PM PYTHON DEVELOPER): Given new acne, may be PCOS that was masked/ treated while on COCs. - bHCG negative in clinic today - Refer to generator technician Dark urine 08/25/2020 07/09/2021 Assessment & Plan (08/25/2020 7:52 PM PYTHON DEVELOPER): UA to screen for hematuria with reflex to urine culture ordered today. - Counseled regarding typical UTI sx and that foul smell is not diagnostic of a UTI Acne vulgaris 06/23/2020 02/12/2023 Assessment & Plan (06/23/2020 9:36 PM CDT): Start COCs, start BP wash bid, discussed risk of bleaching clothes/ towels. If no improvement, add Differin qhs. Routine general medical exam ination at a health care facility 12/01/2019 02/12/2023 Encounter for well woman ewelina wagner with routine gynecological exam 12/01/2019 05/28/2022 Assessment & Plan (12/01/2019 11:49 AM CDT): - Depression screen: PHQ Screening 0 - A1c: not indicated - Lipids: normal 06/2019 - Mammogram Refer at 40 - Pap: due today - HIV: screened previously and negative. - HCV: screen today - Other STI screen: declined - Influenza: UTD -20 - Td/Tdap: give today - HPV:UTD Routine health maintenance objectives discussed including need for healthy diet, physical activity, and need for adequate calcium and vitamin D intake. Orders placed for any outstanding screening studies as noted. Physical exam performed as above.Routine annual labs, if needed, have been ordered and will be reviewed with patient when results available. DUB (dysfunctional uterine bleeding) 12/01/2019 02/10/2023 Assessment & Plan (06/23/2020 9:28 PM CDT): Likely related to recent discontinuation of COCs. - bHCG neg - Ok to monitor for now, will refer back to generator technician if recurrent. Assessment & Plan (12/01/2019 1:33 PM CDT): Likely related to oral contraceptive discontinuation. TSH And CBC WNL on recent labs. - Urine beta- hCG negative. - Cont COCs. Discussed risk of unscheduled bleeding will be higher for the next 2 months and she will let me know if it persists beyond this. Esophageal dysphagia 06/22/2019 023 Assessment & Plan (08/13/2019 5:57 PM PYTHON DEVELOPER): With regurgitation of undigested esophageal contents. Progressive per pt. No weight loss. Some improvement with PPI. - Refer for EGD. - CBC, CMP WNL - Increase pantoprazole to 40mg every day - Discussed avoiding GERD triggers, eating >4 hours before bed Assessment & Plan (06/22/2019 5:22 PM CDT): With regurgitation of undigested esophageal contents. Progressive per pt. No weight loss. - Refer for EGD. - CBC, CMP, H pylori stool ag given dyspepsia - Start pantoprazole 20mg qd Fatigue 06/22/2019 05/28/2022 Assessment & Plan (08/13/2019 5:55 PM PYTHON DEVELOPER): She admits to struggling to handle stressors. No e/o this is mediated by her repaired TOF, as Recently had TTE, interrogation of ICD with no concerns from cardiology or EP. CBC, CMP, TSH, ESR WNL last visit. - Given referral to counselors and therapists to discuss healthy ways to cope with stress, she will pursue. - Recommended she increase physical activity to improve fatigue. Assessment & Plan (06/22/2019 5:24 PM CDT): She admits to struggling to handle stressors. No e/o this is mediated by her repaired TOF, as Recently had TTE, interrogation of ICD with no concerns from cardiology or EP. - Check CBC, CMP, TSH today - Check ESR to screen for autoimmune disease, however she has arthralgias without e/o synovitis and no other symptoms of autoimmune disease. - Given referral to counselors and therapists to discuss healthy ways to cope with stress. - Recommended she increase physical activity to improve fatigue. Family history of diabetes mellitus 06/22/2019 05/28/2022 Dyspepsia 06/22/2019 12/01/2019 Dysuria 06/22/2019 07/09/2021 Assessment & Plan (06/23/2020 9:27 PM CDT): UA is normal, low c/f UTI. Suspect she may have IC exacerbated by beverages and diet. - Rec avoidance of bladder irritants in diet, timed voids Assessment & Plan (12/01/2019 1:16 PM CDT): C/f UTI vs. Interstitial cystitis. - Send for urine microscopy. Unfortunately she did not leave enough urine for culture. - Treat pending UA results. - Counseled regarding diet changes to prevent bladder irritation. Acute cystitis with hematuria 06/22/2019 08/13/2019 Assessment & Plan (06/22/2019 5:27 PM CDT): POC UA pos for blood, nitrite, leuk esterase. No signs or sx of pyelo. - Rx Bactrim DS bid x3 days. SER - Reviewed red flag sx. - UA next visit to confirm resolution of hematuria - She needs to urinate post-coitus. Cont to maintain hydration. Constipation 06/22/2019 01/04/2022 Assessment & Plan (12/01/2019 1:34 PM CDT): No improvement with OTC. Suspect IBS given bloating sx. - Trial Linzess 45 mcg daily, pt aware of SE and dosing schedule. - Low gas diet for bloating, screen for celiac dz Assessment & Plan (08/13/2019 5:57 PM PYTHON DEVELOPER): Chronic, now improved. - Workup for dyspepsia and fatigue as otherwise noted. - Metamucil bid scheduled and Miralax bid prn for goal of 1 soft BM every other day Assessment & Plan (06/22/2019 5:32 PM CDT): Chronic. - Workup for dyspepsia and fatigue as otherwise noted. - Metamucil bid scheduled and Miralax bid prn for goal of 1 soft BM every other day Healthcare maintenance 08/08/201805/28 Overview (08/08/2018): - Pap- neg cytology in 2015. Next due in Nov 2018. Assessment & Plan (12/04/2021 2:28 PM CDT): - Depression screen: PHQ Screening 0 PHQ-2 Total Score (If total score is 3 or more points, staff should administer the PHQ-9): 0 PHQ-9 Total Score: 0 - A1c: screen today - Lipids:screen today - Mammogram Refer at 40 - Pap: normal 11/2019, due 11/2022 - HIV: screened previously and negative. - HCV: NR - Other STI screen: declined - Influenza: UTD 21-22 - Td/Tdap: UTD - HPV:UTD - COVID: declined Routine health maintenance objectives discussed including need for healthy diet, physical activity, and need for adequate calcium and vitamin D intake. Orders placed for any outstanding screening studies as noted. Physical exam performed as above.Routine annual labs, if needed, have been ordered and will be reviewed with patient when results available. Contraceptive management 07/12/2018 Overview (08/08/2018): -Nexplanon removed 08/08/18 without incident -Sent prescription for OCPs (Sprintec sent to pharmacy), patient previously tolerated well. She denies any hypertension, migraines with aura, or history of blood clots Assessment & Plan (01/04/2022 9:35 PM CDT): No longer . Seh would like to return to taking COCs. SE reviewed, including risk of VTE. Assessment & Plan (06/23/2020 9:34 PM CDT): bHCG neg today. Prior ANGEL had decreased her libido, but she is not interested in in the next year. - Trial lower E2 ANGEL with migrogestin 1mg-20mcg every day. SER including risk for thrombosis and DUB. Reviewed need for backup contraception x7 days Assessment & Plan (07/12/2018 2:00 PM CDT): Discussed all BCM options. Considering OCP, education materials given. Reviewed side effects/bleeding profile/usage. RTC with insurance approval for removal of implant and to start desired BCM. Next pap due 11/2018. Ventricular tachycardia 04/26/201805/22 Overview (12/23/2020): ICD in place, please see TOF overview Assessment & Plan (02/12/2023 3:27 PM CDT): SP ICD, follows with EP, NSVT on most recent device interrogation. This is not bothersome and chronic per her report, declined medical management at this time. Dr. Matos as scheuled. Assessment & Plan (02/12/2023 3:02 PM CDT): ICD in place, see TOF overview Assessment & Plan (01/04/2022 9:30 PM CDT): Inducible VT on EP study. She had ICD placement, [employer] Incepta in March 2012. She has had one episode of VT status post antitachycardia pacing in May 2014. No evidence of recurrent VT on most recent ICD interrogation and no atrial arrythmias on event monitoring. - Cont f/u with Dr. 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 She had ICD placement, [employer] Incepta in March 2012. She has had one episode of VT status post antitachycardia pacing in May 2014. No evidence of recurrent VT on most recent ICD interrogation and no atrial arrythmias on event monitoring. - Cont f/u with Dr. 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 06/22/2019 Immunizations Name Administration Dates Next Due DTP 01/27/1995, 5,05/31/1992,05/31,05/05/1991,05/05/1991,02/02/1991 ,02/02/1991,1990,1990 HPV, Quadrivalent 07/13/2007,03/22/2007,01/12/20 07 HPV, Unspecified 07/13/2007, 7,03/22/2007,03/22,01/11/2007,01/11/2007 Hep A, Ped Unspecified 01/26/2002 Hep A, Pediatric 07/14/2001 Hep A, Unspecified 01/26/2002, 2,07/14/2001,07/14 Hep B, Adolescent or Pediatric 01/10/1998,1996,07/12/1997 Hep B, Unspecified 01/10/1998, 8,09/04/1997,09/04,07/12/1997,07/12/1997 HiB 12/26/1991, 2,02/02/1991,02/02,1990,1990 Influenza LAIV (Nasal) 07/13/2007,2006,09/23/2006,09/23 Influenza, Quadrivalent, Tracy [employer] Culture-based MDCK, Preservative Free, Antibiotic Free, Intramuscular 06/26/2021 Influenza, Trivalent, Preser vative Free, Intramuscular 07/23/2011,06/20/2009,07/13/2007 Influenza, Unspecified 06/27/2024 Influenza, Whole 09/23/2006 MMR 01/27/1995, 5,12/26/1991,12/25 Meningococcal ACWY, Unspecified 07/13/2007,07/13 Meningococcal MCV4P (Menactra) 07/13/2007 OPV 01/27/1995, 2,05/05/1991,02/02,1990 Pneumococcal Polysaccharide PPV23 05/28/2022 Polio, Unspecified 01/27/1995, 5,05/31/1992,05/31,05/05/1991,05/05/1991,02/02/1991 ,02/02/1991,1990,1990 Td, Unspecified 03/03/2005,03/03/2005 Td, adsorbed 03/03/2005 Tdap 05/06/2023, 1,12/01/2019,11/30,09/23/2006,09/23/2006 Varicella 03/22/2007, 7,1995,09/07 Social History Tobacco Use Types Packs/Day Years Used Date Smoking Tobacco: Never Cigarettes Smokeless Tobacco: Never Tobacco Cessation:Counseling Given: Not Answered Alcohol Use Standard Drinks/Week Comments Not Currently 0 (1 standard drink = 0.6 oz pur e alcohol) Social Connection and Isolat ion Panel [NHANES] Answer Date Recorded In a typical week, how many times do you talk on the phone with family, friends, or neighbors? More than three times a week 07/08/2023 How often do you get togethe r with friends or relatives? More than three times a week 07/08/2023 How often do you attend chur ch or jehovah's witness services? More than 4 times per year 07/08/2023 Do you belong to any clubs o r organizations such as baptist groups, unions, fraternal or athletic groups, or school groups? No 07/08/2023 How often do you attend meet ings of the clubs or organizations you belong to? Never 07/08/2023 Are you , , di vorced, , never , or living with a partner? 07/08/2023 AUDIT-C Answer Date Recorded Q1: How often do you have a drink containing alc ohol? Never 07/27/2021 Average Number of Drinks Not on file 021 Q3: How often do you have si x or more drinks on one occasion? Never 07/27/2021 Overall Financial Resource Strain (CARDIA) Answe r Date Recorded How hard is it for you to pa y for the very basics like food, housing, medical care, and heating? Not very hard 07/08/2023 PHQ-2 Answer Date Recorded PHQ-2 Total Score (If total score is 3 or more points, staff should administer the PHQ-9) 2 08/09/2024 Hunger Vital Sign Answer Date Recorded Within the past 12 months, y ou worried that your food would run out before you got the money to buy more. Never true 07/08/20 23 Within the past 12 months, t he food you bought just didn't last and you didn't have money to get more. Never true 07/08/2023 PRAPARE - Transportation Answer Date Re corded In the past 12 months, has l ack of transportation kept you from medical appointments or from getting medications? No 06/20 In the past 12 months, has l ack of transportation kept you from meetings, work, or from getting things needed for daily living? No 07/08/2023 Housing Stability Vital Sign Answer Tam e Recorded In the last 12 months, was t here a time when you were not able to pay the mortgage or rent on time? No 07/08/2023 In the last 12 months, how many places have you lived? 0 07/08/2023 In the last 12 months, was t here a time when you did not have a steady place to sleep or slept in a senior living (including now)? No 07/08/2023 Sayre Depression Scale Answer Date Recorded Sayre Depression Scale Total 11 08/18/2023 The thought of harming myself has occurred to me . Never 08/18/2023 Personal Safety Answer Date Recorded Have you ever been in or are you currently in a harmful physical or emotional relationship or is someone making you feel afraid or unsafe? 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 Not on file Not on file Not on camilo e Last Filed Vital Signs Vital Sign Reading Time Taken Comments Blood Pressure 110/64 08/09/2024 11:24 AM PYTHON DEVELOPER Pulse 78 08/09/2024 11:24 AM PYTHON DEVELOPER Temperature 36.9 ??C (98.4 ??F) 08/09/2024 11:[address] Respiratory Rate 16 07/11/2023 7:55 AM CDT Oxygen Saturation 99% 08/09/2024 11:24 AM PYTHON DEVELOPER Inhaled Oxygen Concentration - - Weight 61.2 kg (135 lb) 08/09/2024 11:24 AM PYTHON DEVELOPER Height 157.5 cm (5' 2 ) 08/09/2024 11:24 AM PYTHON DEVELOPER Body Mass Index 24.69 08/09/2024 11:24 AM PYTHON DEVELOPER Plan of Treatment Not on file Procedures Procedure Name Priority Date/Time Associated Diagnosis Comments CONGENITAL TRANSTHORACIC ECHO (TTE) COMPLETE W DOPPLER/CF WO CONTRAST Routine 10/04/2024 11:58 AM PYTHON DEVELOPER Tetralogy of Fallot s/p repair DEVICE CHECK - REMOTE Routine 09/26/2024 8:03 PM PYTHON DEVELOPER EGFR Routine 08/09/2024 4:00 PM PYTHON DEVELOPER Screening for endocrine, nutritional, metabolic and immunity disorder DIFFERENTIAL AUTO Routine 08/09/2024 4:0 0 PM PYTHON DEVELOPER Iron deficiency CBC WITH AUTO DIFFERENTIAL Routine 08/09/2024 4:00 PM PYTHON DEVELOPER Iron deficiency COMPREHENSIVE METABOLIC PANEL Routine 08/09/2024 4:00 PM PYTHON DEVELOPER Screening for endocrine, nutritional, metabolic and immunity disorder LIPID PANEL Routine 08/09/2024 4:00 PM PYTHON DEVELOPER Lipid screening THYROID FUNCTION CASCADE Routine 08/09/2024 4:00 PM PYTHON DEVELOPER Thyroid disorder screen VITAMIN D 25 HYDROXY Routine 08/09/2024 4:00 PM PYTHON DEVELOPER Vitamin D deficiency IRON PROFILE W/ IBC Routine 08/09/2024 4 :00 PM PYTHON DEVELOPER Iron deficiency POC INFLUENZA A/B, COVID-19 ANTIGEN Routine 08/09/2024 11:45 AM PYTHON DEVELOPER Body aches PRO B-TYPE NATRIURETIC PEPTIDE Routine 07/31/2024 6:17 PM PYTHON DEVELOPER Tetralogy of Fallot s/p repair BASIC METABOLIC PANEL Routine 07/31/2024 3:39 PM PYTHON DEVELOPER Tetralogy of Fallot s/p repair HEPATITIS C ANTIBODY Routine 12/14/2022 12:16 PM CDT Supervision of high-risk , first trimester PAP AND HIGH RISK HPV, REFLEX TO GENOTYPING Routine 10/16/2022 4:28 PM PYTHON DEVELOPER Cervical cancer screening from Last 3 Months or Most Recently Relevant to Health Maintenance Results * CONGENITAL TRANSTHORACIC ECHO (TTE) COMPLETE W DOPPLER/CF WO CONTRAST (10/04/2024 11:58 AM PYTHON DEVELOPER) LV EF % CONS SCIMAGE Anatomical Region Laterality Modality Ultrasound 10/04/2024 11:0 8 AM PYTHON DEVELOPER Narrative 10/04/2024 3:19 PM PYTHON DEVELOPER [facility] [place] [place] [address] Transthoracic Echocardiographic Report Patient Name: KERI HEBERT R ?? : 1990 (34y ) ??Gender: F Study Date: 10/04/2024 11:08:20 AM Ht(Inch): 62 ??Wt(Lb): 134.92 ??BSA: 1.64 Greige Mender: Melba Sorto RDCS ??Location: [facility] Order Provider: SYEDA VIDAL Heart Rate: 51 ??BMI: 24.67 ??BP: 114 / 60 Quality: The study images were of technically good quality. Ref Provider: SYEDA VIDAL ?? PROCEDURES: Echocardiographic Report: ([id number], [id number]) Transthoracic complete echo with strain imaging, 2D, spectral and tissue Doppler, color flow Doppler, M-mode. ?? INDICATIONS: TOF and Z87.74 Personal history of (corrected) congenital malformations of heart and circulatory system. ?? MEASUREMENTS: 2D/MM ? Value ?Range ? Doppler ? Value ? Range LVIDd 2D ?4.09 cm ?[ 3.80 - 5.20 ] ? AV Peak Luiz ? 1.30 m/s ?[ 1.00 - 1.70 ] LVIDs 2D ?2.89 cm ?[ 2.20 - 3.50 ] ? AV Peak PG ?6.76 IVSd 2D ? 0.88 cm ?[ 0.60 - 0.90 ] ? AV Mean PG ?4.00 mmHg LVPWd 2D ?0.87 cm ?[ 0.60 - 0.90 ] ? AV VTI ?29.25 cm LV Thickness Ratio ?1.01 ? [ 1.50 - 3.00 ] ? LVOT Peak Luiz ? 1.14 m/s ?[ 0.70 - 1.10 ] LV FS 2D ?29.24 % ?[ 27.00 - 45.00 ] ? LVOT Peak PG ?5.20 LV Mass 2D ?111.58 g ? LVOT Mean PG ?2.72 mmHg LV Mass Index 2D ?68.04 g/m2 ? LVOT VTI ?24.55 cm RWT ? 0.43 ? LVOT Diam ? 1.94 cm EDV 2D ?73.79 ?TORRI VTI ? 2.48 cm2 ESV 2D ?31.94 ?TORRI Vmax ?2.59 cm2 EF Teich 2D ? 57 % ? LVOT/AV VTI ? 0.84 - Dimensionless index (DVI) LV EDV Index ?52.18 ml/m2 ?MV E Peak Luiz ? 90.76 cm/sec ?[ 0.60 - 1.30 ] EDV Mod 2C ?82.58 ml ? [ 41.00 - 133.00 ] ?MV A Peak Luiz ? 55.01 cm/sec ?[ 1.00 - 1.20 ] EDV Mod 4C ?84.96 ml ? MV E/A ?1.65 ratio ?[ 0.80 - 1.50 ] EDV Mod BP ?85.57 ml ? [ 46.00 - 106.00 ] ?MV Decel Time ? 258.97 msec ? [ 104.00 - 258.00 ] ESV Mod 2C ?31.05 ml ? Med E` Luiz ?6.359 cm/sec ESV Mod 4C ?28.19 ml ? Lat E` Luiz ?9.532 cm/sec ?[ 0.100 - 0.150 ] ESV Mod BP ?29.60 ml ? [ 14.00 - 42.00 ] ? Average E/E` ?11.42 EF Mod 2C ? 62 % ? RV S` ? 0.09 m/s EF Mod 4C ? 67 % ? PV Peak Luiz ? 2.00 m/s ?[ 0.40 - 0.80 ] EF Mod BP ? 65 % ? [ 54 - 74 ] ? PV Peak PG ?16.00 LV GLS ?-17.3 % ?PV Mean PG ?9.85 mmHg LA Dimension 2C ? 4.68 cm ?PV Accel Time ? 106.57 msec ? [ 103.00 - 142.00 ] LA Dimension 4C ? 5.31 cm ?PV Accel Spalding ?13.11 m/s LA Length 2C ?4.68 cm ?RVOT Peak Luiz ? 1.47 m/s LA Length 4C ?5.31 cm ?RVOT Mean Luiz ? 1.13 m/s LA Volume 2C ?34.9 ml ?RVOT Peak PG ?8.67 mmHg LA Volume 4C ?25.9 ml ?RVOT Mean PG ?5.50 mmHg LA Volume BP ?33.94 ml ? RVOT VTI ?32.98 LA Volume Index ?20.70 ml/m2 RVDd 2D ? 4.13 cm ?[ 2.00 - 3.00 ] RA Area ? 10.53 cm/m2 ?[ 10.00 - 18.00 ] RA Volume ?24.24 ml RA Volume Index ?14.78 ml/m2 AoR Diam 2D ? 3.88 cm ?[ 2.70 - 3.70 ] Asc Ao Diam 2D ? 3.52 cm Asc Ao Index ? 2.15 cm/m2 - ?? FINDINGS: Left Ventricle: Normal left ventricular size. Normal left ventricular size based on volume index. Concentric LV remodeling. Normal left ventricular systolic function. Left Atrium: The left atrium is normal in size. Right Atrium: The right atrium is normal in size. Aortic Valve: No aortic valve stenosis. The peak transaortic gradient is 6.76 mmHg. The mean transaortic gradient is 4 mmHg. The aortic valve area by the continuity equation (using VTI) is 2.48 cm2. The aortic valve area by the continuity equation (using Vmax) is 2.59 cm2. Aorta: There is dilation of the aortic root. ?? CONCLUSIONS: 1. Adult Congenital Heart Disease, history of s/p repair for Tetralogy of Fallot in 1990, s/p placement of Pulmonary homograft in 2010. 2. Situs Solitus, Levocardia. 3. Normal left ventricular size. Normal left ventricular size based on volume index. Concentric LV remodeling. Normal left ventricular systolic function. EF 65%. Normal LV Myocardial Strain, -17.3%. 4. The left atrium is normal in size. 5. No aortic valve stenosis. The peak transaortic gradient is 6.76 mmHg. Dilated aortic root diameter index. ?? COMPARISONS: There was no previous study available for comparison. ?? ATTESTATION: I have reviewed and interpreted the pertinent images and measurements of this study. I attest to the conclusions in the final report that is provided above. ?? DISCLAIMER: The study images and the final report will be retained in the patient chart by the [facility] for the legally required time period. This chart constitutes the legal record of any testing performed. Electronically Signed By: Jorge Luis Galarza M.D. 10/04/2024 3:18:20 PM PYTHON DEVELOPER Electronically Signed By: Jorge Luis Galarza M.D. 10/04/2024 3:18:20 PM PYTHON DEVELOPER Procedure Note Jorge Luis Galarza MD - 10/04/2024 [facility] [place] [address] Transthoracic Echocardiographic Report Patient Name: KERI HEBERT R : 1990 (34y ) Gender: F Study Date: 10/04/2024 11:08:20 AM Ht(Inch): 62 Wt(Lb): 134.92 BSA: 1.64 Greige Mender: Melba Sorto RDCS Location: [facility] Order Provider:SYEDA VIDAL Heart Rate: 51 BMI: 24.67 BP: 114 / 60 Quality: The study images were oftechnically good quality. Ref Provider: SYEDA VIDAL PROCEDURES: Echocardiographic Report: ([id number], [id number]) Transthoracic complete echo withstrain imaging, 2D, spectral and tissue Doppler, color flow Doppler, M-mode. INDICATIONS: TOF and Z87.74 Personal history of (corrected) congenital malformations ofheart and circulatory system. MEASUREMENTS: 2D/MM Value Range DopplerValue Range LVIDd 2D 4.09 cm [ 3.80 - 5.20 ] AV Peak Vel1.30 m/s [ 1.00 - 1.70 ] LVIDs 2D 2.89 cm [ 2.20 - 3.50 ] AV Peak PG6.76 IVSd 2D 0.88 cm [ 0.60 - 0.90 ] AV Mean PG4.00 mmHg LVPWd 2D 0.87 cm [ 0.60 - 0.90 ] AV VTI29.25 cm LV Thickness Ratio 1.01 [ 1.50 - 3.00 ] LVOT Peak Vel1.14 m/s [ 0.70 - 1.10 ] LV FS 2D 29.24 % [ 27.00 - 45.00 ] LVOT Peak PG5.20 LV Mass 2D 111.58 g LVOT Mean PG2.72 mmHg LV Mass Index 2D 68.04 g/m2 LVOT VTI24.55 cm RWT 0.43 LVOT Diam1.94 cm EDV 2D 73.79 TORRI VTI2.48 cm2 ESV 2D 31.94 TORRI Vmax2.59 cm2 EF Teich 2D 57 % LVOT/AV VTI0.84 - Dimensionless index (DVI) LV EDV Index 52.18 ml/m2 MV E Peak Vel90.76 cm/sec [ 0.60 - 1.30 ] EDV Mod 2C 82.58 ml [ 41.00 - 133.00 ] MV A Peak Vel55.01 cm/sec [ 1.00 - 1.20 ] EDV Mod 4C 84.96 ml MV E/A1.65 ratio [ 0.80 - 1.50 ] EDV Mod BP 85.57 ml [ 46.00 - 106.00 ] MV Decel Lhio987.97 msec [ 104.00 - 258.00 ] ESV Mod 2C 31.05 ml Med E` Vel6.359 cm/sec ESV Mod 4C 28.19 ml Lat E` Vel9.532 cm/sec [ 0.100 - 0.150 ] ESV Mod BP 29.60 ml [ 14.00 - 42.00 ] Average E/E`11.42 EF Mod 2C 62 % RV S`0.09 m/s EF Mod 4C 67 % PV Peak Vel2.00 m/s [ 0.40 - 0.80 ] EF Mod BP 65 % [ 54 - 74 ] PV Peak PG16.00 LV GLS -17.3 % PV Mean PG9.85 mmHg LA Dimension 2C 4.68 cm PV Accel Prxh118.57 msec [ 103.00 - 142.00 ] LA Dimension 4C 5.31 cm PV Accel Slope13.11 m/s LA Length 2C 4.68 cm RVOT Peak Vel1.47 m/s LA Length 4C 5.31 cm RVOT Mean Vel1.13 m/s LA Volume 2C 34.9 ml RVOT Peak PG8.67 mmHg LA Volume 4C 25.9 ml RVOT Mean PG5.50 mmHg LA Volume BP 33.94 ml RVOT VTI32.98 LA Volume Index20.70 ml/m2 RVDd 2D 4.13 cm [ 2.00 - 3.00 ] RA Area 10.53 cm/m2 [ 10.00 - 18.00 ] RA Xwzhjy54.24 ml RA Volume Index14.78 ml/m2 AoR Diam 2D 3.88 cm [ 2.70 - 3.70 ] Asc Ao Diam 2D3.52 cm Asc Ao Index2.15 cm/m2 - FINDINGS: Left Ventricle: Normal left ventricular size. Normal left ventricular sizebased on volume index. Concentric LV remodeling. Normal left ventricular systolicfunction. Left Atrium: The left atrium is normal in size. Right Atrium: The right atrium is normal in size. Aortic Valve: No aortic valve stenosis. The peak transaortic gradient is6.76 mmHg. The mean transaortic gradient is 4 mmHg. The aortic valve area by thecontinuity equation (using VTI) is 2.48 cm2. The aortic valve area by the continuity equation(using Vmax) is 2.59 cm2. Aorta: There is dilation of the aortic root. CONCLUSIONS: 1. Adult Congenital Heart Disease, history of s/p repair for Tetralogy ofFallot in 1990, s/p placement of Pulmonary homograft in 2010. 2. Situs Solitus, Levocardia. 3. Normal left ventricular size. Normal left ventricular size based onvolume index. Concentric LV remodeling. Normal left ventricular systolic function. EF65%. Normal LV Myocardial Strain, -17.3%. 4. The left atrium is normal in size. 5. No aortic valve stenosis. The peak transaortic gradient is 6.76 mmHg.Dilated aortic root diameter index. COMPARISONS: There was no previous study available for comparison. ATTESTATION: I have reviewed and interpreted the pertinent images and measurements ofthis study. I attest to the conclusions in the final report that is provided above. DISCLAIMER: The study images and the final report will be retained in the patientchart by the [facility] for the legally required time period. This chart constitutesthe legal record of any testing performed. Electronically Signed By: Jorge Luis Galarza M.D. 10/04/2024 3:18:20 PM PYTHON DEVELOPER Electronically Signed By: Jorge Luis Galarza M.D. 10/04/2024 3:18:20 PM PYTHON DEVELOPER us Syeda Vidal NP CV ECHO PROCEDURES Final R esult * DEVICE CHECK - REMOTE (09/26/2024 8:03 PM PYTHON DEVELOPER) Anatomical Region Laterality Modality Other 09/26/2024 8:03 PM PYTHON DEVELOPER Narrative 09/27/2024 9:33 AM PYTHON DEVELOPER Interpretation Summary: Battery and Leads (BL) Normal parameters noted on battery and lead(s) --- 2 ??years remaining (this is an estimate based on prior usage) Presenting Rhythm (MA) Ventricular Sensing (VS) --- rate 80 Transmission Information (TI) Device Summary Report Procedure Note Jesse Matos MD - 09/27/2024 Interpretation Summary: Battery and Leads (BL) Normal parameters noted on battery and lead(s) --- 2 years remaining(this is an estimate based on prior usage) Presenting Rhythm (MA) Ventricular Sensing (VS) --- rate 80 Transmission Information (TI) Device Summary Report us Jesse Matos MD CV CARDIAC SERVICES PROCEDURES Final Result * eGFR (08/09/2024 4:00 PM PYTHON DEVELOPER) [facility] eGFR >90 >=60 mL/min/1. 73 m2 Comment: Interpretive Data Reference Interval Normal ?>/= 90 mL/min/1.73m2 Mildly decreased* ? 60 - 89 mL/min/1.73m2 Mildly to moderately decreased ?45 - 59 mL/min/1.73m2 Moderately to severely decreased ??30 - 44 mL/min/1.73m2 Severely decreased ?15 - 29 mL/min/1.73m2 Kidney Failure ?< 15 ??mL/min/1.73m2 *Relative to young adult level Estimated glomerular filtration rate is determined by the 2020 CKD-EPI equation recommended by the National Kidney Foundation (A Unifying Approach to GFR Estimation: Recommendations of the NKF-ASK Task Force on Reassessing the Inclusion of Race in Diagnosing Kidney Disease, JASN 2020). The CKD-EPI equation should not be used for patients with unstable renal function and has not been validated in children and those over 70. Current interpretive data was last reviewed 2021. Blood 08/09/2024 4:00 PM PYTHON DEVELOPER 08/09/2024 9:36 PM PYTHON DEVELOPER us Lisa Mehta NP LAB BLOOD ORDERABLES Final Resul t [facility] [address] Department [place] [address] * Differential, auto (08/09/2024 4:00 PM PYTHON DEVELOPER) Neutrophil abs 4.1 1.5 - 6.5 K/cumm Imm gran abs 0.0 0.0 - 0.1 K/cumm [facility] Lymphocyte abs 1.1 0.8 - 3.3 K/cumm [facility] Monocyte abs 0.6 0.2 - 0.8 K/cumm [facility] Eosinophil abs 0.1 0.0 - 0.5 K/cumm [facility] Basophil abs 0.0 0.0 - 0.1 K/cumm [facility] Neutrophil pct 68.5 % [facility] Comment: Interpretive Data Percent cell count reference ranges are not reported, since discordance with absolute values may lead to misinterpretation of CBC data. Current Interpretive Data was last revised on 2017. Imm gran pct 0.2 % [facility] Comment: Interpretive Data Percent cell count reference ranges are not reported, since discordance with absolute values may lead to misinterpretation of CBC data. Current Interpretive Data was last revised on 2017. Lymphocyte pct 18.3 % [facility] Comment: Interpretive Data Percent cell count reference ranges are not reported, since discordance with absolute values may lead to misinterpretation of CBC data. Current Interpretive Data was last revised on 2017. Monocyte pct 10.2 % [facility] Comment: Interpretive Data Percent cell count reference ranges are not reported, since discordance with absolute values may lead to misinterpretation of CBC data. Current Interpretive Data was last revised on 2017. Eosinophil pct 2.3 % [facility] Comment: Interpretive Data Percent cell count reference ranges are not reported, since discordance with absolute values may lead to misinterpretation of CBC data. Current Interpretive Data was last revised on 2017. Basophil pct 0.5 % [facility] Comment: Interpretive Data Percent cell count reference ranges are not reported, since discordance with absolute values may lead to misinterpretation of CBC data. Current Interpretive Data was last revised on 2017. Blood 08/09/2024 4:00 PM PYTHON DEVELOPER 08/09/2024 9:27 PM PYTHON DEVELOPER us Lisa Mehta NP LAB BLOOD ORDERABLES Final Resul t [facility] [address] Department [place] [address] * Thyroid Function [place] (08/09/2024 4:00 PM PYTHON DEVELOPER) TSH 1.08 0.30 - 4.20 mcIUnit/mL Blood 08/09/2024 4:00 PM PYTHON DEVELOPER 08/09/2024 9:27 PM PYTHON DEVELOPER us Lisa Mehta NP LAB BLOOD ORDERABLES Final Resul t Performing Organization Address [facility] de Phone Number [facility] [address] Department [place] [address] * (ABNORMAL) Iron profile w/ IBC (08/09/2024 4:00 PM PYTHON DEVELOPER) Pathologist [facility] Iron 58 35 - 145 mcg/dl TIBC 234(L) 250 - 400 mcg/dL [facility] Transferrin saturation 25 20 - 50 % [facility] Blood 08/09/2024 4:00 PM PYTHON DEVELOPER 08/09/2024 9:27 PM PYTHON DEVELOPER us Lisa Mehta NP LAB BLOOD ORDERABLES Final Resul t Performing Organization Address [facility] de Phone Number STU [place]LL [address] Department [place] [address] * (ABNORMAL) CBC with auto differential (08/09/2024 4:00 PM PYTHON DEVELOPER) [facility] WBC 6.0 3.8 - 9.9 K/cumm Hgb 12.8 11.9 - 15.5 g/dL [facility] Hct 41.7 35.6 - 45.5 % [facility] Plt 195 150 - 400 K/cumm [facility] MPV 11.0 9.1 - 12.3 fL [facility] RBC 4.36 3.90 - 5.20 M/cumm [facility] MCV 95.6 81.3 - 96.4 fL [facility] MCH 29.4 27.1 - 33.3 pg [facility] MCHC 30.7(L) 32.3 - 35.7 g/dL [facility] CH RDW CV 12.6 11.1 - 14.9 % [facility] CH RDW SD 44.7 35.7 - 48.1 fL [facility] CH NRBC abs 0.00 0.00 - 0.01 K/cumm [facility] Blood 08/09/2024 4:00 PM PYTHON DEVELOPER 08/09/2024 9:27 PM PYTHON DEVELOPER us Lisa Mehta NP LAB BLOOD ORDERABLES Final Resul t [facility] [address] Department [place] [address] * (ABNORMAL) Vitamin D 25 hydroxy (08/09/2024 4:00 PM PYTHON DEVELOPER) Pathologist [facility] Vitamin D 25-OH 15(L) 30 - 80 ng/mL Blood 08/09/2024 4:00 PM PYTHON DEVELOPER 08/09/2024 9:27 PM PYTHON DEVELOPER us Lisa Mehta BLUEPRINTER LAB BLOOD ORDERABLES Final Resul t Performing Organization Address [facility] Co de Phone Number STU [address] Department [place] [address] * Lipid panel (08/09/2024 4:00 PM PYTHON DEVELOPER) Pathologist [facility] Cholesterol 135 30 - 199 mg/dL Comment: Interpretive Data Ages < or = 19 years ??Acceptable: ? <170 mg/dL ??Borderline high: ??170-199 mg/dL ??High: ? >or= 200 mg/dL Ages > or = 20 years ??Desirable: ?<200 mg/dL ??Borderline high: ??200-239 mg/dL ??High: ? >or= 240 mg/dL Literature References: 1. Expert Panel on Integrated Guidelines for Cardiovascular Health and Risk Reduction in Children and Adolescents. Pediatrics 2011;128:S213 2. NCEP Expert Panel. Circulation 2004;110:227 Current Interpretive Data was last revised on 2018. Triglycerides 28 <=149 mg/dL [facility] Comment: Interpretive Data Ages < or = 9 years ??Acceptable: ? <75 mg/dL ??Borderline high: ??75-99 mg/dL ??High: ? >or= 100 mg/dL Ages 10 to 20 years ??Acceptable: ? <90 mg/dL ??Borderline high: ??90-129 mg/dL ??High: ? >or= 130 mg/dL Ages > or = 20 years ??Desirable: ?<150 mg/dL ??Borderline high: ??150-199 mg/dL ??High: ? 200-499 mg/dL ?Very high: ?? >or= 499 mg/dL Literature References: 1. Expert Panel on Integrated Guidelines for Cardiovascular Health and Risk Reduction in Children and Adolescents. Pediatrics 2011;128:S213 2. NCEP Expert Panel. Circulation 2004;110:227 Current Interpretive Data was last revised on 2018. HDL 49 >=40 mg/dL [facility] Comment: Interpretive Data Ages < or = 19 years ??Acceptable: ? >45 mg/dL ??Borderline low: ?? 40-45 mg/dL ??Low: ? <40 mg/dL Ages > or = 20 years ??Desirable: ?>or= 60 mg/dL ??Low: ? <40 mg/dL Literature References: 1. Expert Panel on Integrated Guidelines for Cardiovascular Health and Risk Reduction in Children and Adolescents. Pediatrics 2011;128:S213 2. NCEP Expert Panel. Circulation 2004;110:227 Current Interpretive Data was last revised on 2018. LDL, calculated 78 <=129 mg/dL [facility] Comment: Interpretive Data Ages < or = 19 years ??Acceptable: ? <110 mg/dL ??Borderline high: ??110-129 mg/dL ??High: ?>or= 130 mg/dL Ages > or = 20 years ??Optimal: ? <100 mg/dL ??Near optimal: ?100-129 mg/dL ??Borderline high: ?? 130-159 mg/dL ??High: ?>160 mg/dL Calculated using the [place] LDL-C estimating equation. This equation was implemented on 2024. Prior to this date LDL-C was estimated using the Friedewald equation. Literature References: 1. Expert Panel on Integrated Guidelines for Cardiovascular Health and Risk Reduction in Children and Adolescents. Pediatrics 2011;128:S213 2. NCEP Expert Panel. Circulation 2004;110:227 3. Yoan M et al. BEVERLEY Cardiol. 2020 January 18;5(5):540-548. doi: 10.1001/jamacardio.2020.0013 Current Interpretive Data was last revised on 2024. Non-HDL Cholesterol 86 mg/dL [facility] Comment: Interpretive Data Ages < or = 19 years ??Acceptable: ?<120 mg/dL ??Borderline high: ??120-144 mg/dL ??High: ?>145 mg/dL Ages > or = 20 years ??When triglycerides are >200 mg/dL, Non-HDL cholesterol is a secondary target of ? therapy with treatment goals that are 30 mg/dL greater than the LDL cholesterol target. ? Literature References: 1. Expert Panel on Integrated Guidelines for Cardiovascular Health and Risk Reduction in Children and Adolescents. Pediatrics 2011;128:S213 2. NCEP Expert Panel. Circulation 2004;110:227 Current Interpretive Data was last revised on 2018. Chol/HDL ratio 3 [facility] CH Blood 08/09/2024 4:00 PM PYTHON DEVELOPER 08/09/2024 9:27 PM PYTHON DEVELOPER us Lisa Mehta BLUEPRINTER LAB BLOOD ORDERABLES Final Resul t [facility] [address] Department of Laboratories [place], [place] [id number] * Comprehensive metabolic panel (08/09/2024 4:00 PM PYTHON DEVELOPER) Sodium 143 135 - 145 mmol/L Potassium, pl 3.5 3.3 - 4.9 mmol/L [facility] Chloride 104 97 - 110 mmol/L [facility] CH CO2 24 22 - 32 mmol/L [facility] Anion gap 15 2 - 15 mmol/L [facility] BUN 9 6 - 25 mg/dL [facility] Creatinine 0.76 0.60 - 1.10 mg/dL [facility] Glucose 76 70 - 199 mg/dL [facility] Comment: Interpretive Data Fasting glucose >/= 126 mg/dl is diagnostic for diabetes. ?? Fasting is defined as no caloric intake for at least 8 hours. Fasting glucose between 100 mg/dl to 125 mg/dl is diagnostic of prediabetes. In a patient with classic symptoms of hyperglycemia or hyperglycemic crisis, a random glucose >/= 200 mg/dl is diagnostic for diabetes. In the absence of unequivocal hyperglycemia, results should be confirmed by repeat testing. The classification and Diagnosis of Diabetes Diabetes Care 2021; 46: S19-S40. Current interpretive data was last revised 2022. Calcium 9.1 8.5 - 10.3 mg/dL [facility] CH Bilirubin, total 0.7 0.1 - 1.2 mg/dL [facility] CH Protein, pl 7.5 6.5 - 8.5 g/dL [facility] CH Albumin 4.4 3.5 - 5.0 g/dL [facility] Alk phos 71 40 - 130 Units/L [facility] ALT 9 7 - 45 Units/L [facility] AST 23 10 - 45 Units/L [facility] Blood 08/09/2024 4:00 PM PYTHON DEVELOPER 08/09/2024 9:27 PM PYTHON DEVELOPER us Lisa Mehta NP LAB BLOOD ORDERABLES Final Resul t [facility] [address] Department [place] [address] * POC Influenza A/B, COVID-19 antigen (08/09/2024 11:45 AM PYTHON DEVELOPER) Influenza A Ag, POC Negative Negative [facility] Influenza B Ag, POC Negative Negative [facility] COVID-19 Ag POC Presumptive Negative Presumptive Negative, Invalid [facility] Nasopharyngeal 08/09/2024 11 :45 AM PYTHON DEVELOPER us Lisa Mehta NP POINT OF CARE TEST ORDERABLES Fi nal Result [facility] PCP [facility] [address] * Pro B-type natriuretic peptide (07/31/2024 6:17 PM PYTHON DEVELOPER) NT-proBNP <50 <=300 pg/mL Comment: Interpretive Comments: A. Dyspnea in Acute Care Setting All Ages: ?< 300 pg/ml, acute heart failure unlikely. < 50 yrs: ?300 - 450 pg/ml, further investigation warranted. ? > 450 pg/ml, acute heart failure likely. 50 - 74 yrs: ? 300 - 900 pg/ml, further investigation warranted. ? > 900 pg/ml, acute heart failure likely . > or = 75 yrs: ? 450 - 1800 pg/ml, further investigation warranted. ? > 1800 pg/ml, acute heart failure likely. B. Non-acute Setting < 75 yrs ? < 125 pg/ml, rules out heart failure. ? > or = 125 pg/ml, further investigation warranted. > or = 75 yrs ?< 450 pg/ml, rules out heart failure. ? > or = 450 pg/ml, further investigation warranted. - Knowledge of each individual patient's NT-proBNP range may be more useful than using similar cut-points for every patient. Please note that marked elevations in NT-proBNP levels may be observed in state other than Left Ventricular Congestive Failure, including: acute coronary syndromes, right heart strain/failure (including pulmonary embolism and cor pulmonale), critical illness, renal failure, as well as advanced age. - References: 1. Cristy ALMANZAR et.al. Eur Heart J. 2006:27:330-337. 2. Braeden RW, Orlin ZAMBRANO. J. AM Mark Cardiol: Cardiovasc Imag. 2009;2: 216- 225. Interpretive Data Last Revised Date: 2018. Blood 07/31/2024 6:17 PM PYTHON DEVELOPER 07/31/2024 6:29 PM PYTHON DEVELOPER Syeda Vidal BLUEPRINTER LAB BLOOD ORDERABLES Final Result [facility] Department [place] [address] * (ABNORMAL) Basic metabolic panel (07/31/2024 3:39 PM PYTHON DEVELOPER) Glucose 83 64 - 99 mg/dL [facility] Comment: NONFASTING GLUCOSE RANGE = 64-199 mg/dL FASTING GLUCOSE 64 - 99 = NORMAL FASTING GLUCOSE 100 - 125 = IMPAIRED FASTING GLUCOSE FASTING GLUCOSE >=126 = PROVISIONAL DIAGNOSIS OF DIABETES Potassium 4.2 3.3 - 5.1 mmol/L [facility] Creatinine 0.80 0.60 - 1.10 mg/dL [facility] BUN 12 7 - 23 mg/dL [facility] Sodium 145 135 - 145 mmol/L [facility] Chloride 108(H) 95 - 107 mmol/L [facility] CO2 Content 25 21 - 29 mmol/L [facility] Calcium 9.2 8.6 - 10.3 mg/dL [facility] eGFR >90.0 >60.0 mL/min/1.7 3 m2 [facility] Blood 07/31/2024 3:39 PM PYTHON DEVELOPER 07/31/2024 4:10 PM PYTHON DEVELOPER Syeda Vidal BLUEPRINTER LAB BLOOD ORDERABLES Final Result [facility] * Hepatitis C antibody (12/14/2022 12:16 PM CDT) Hep C Ab Non Reactive Non Reactive [facility] - 01 Comment: HCV antibody alone does not differentiate between previously resolved infection and active infection. Equivocal and Reactive HCV antibody results should be followed up with an HCV RNA test to support the diagnosis of active HCV infection. Blood 12/14/2022 12:1 6 PM CDT 12/14/2022 Narrative [facility] - 12/15/2022 9:11 AM CDT Performed at: ??01 - [facility] [address] ??[id number] Human Machine Interface Engineer: Salvador Pathak PhD, Phone: ??[phone] Naya Horowitz MD LAB MICROBIOLOGY - GEN ERAL ORDERABLES Final Result [facility] * (ABNORMAL) Pap and High Risk HPV, reflex to Genotyping (10/16/2022 4:28 PM PYTHON DEVELOPER) Thin prep (Pap test) 10/16/2022 4:28 PM PYTHON DEVELOPER 10/22/2022 2:31 PM PYTHON DEVELOPER Narrative PATHOLOGY [facility] - 10/26/2022 4:15 PM PYTHON DEVELOPER EPIC results best viewed via link to PDF [address] ??[address] Tele: ?? Luz Mosher MD - Tactical Deception Plans Officer CYTOLOGY REPORT Note to Patients: This report may contain a detailed description of human tissue sent by a health care provider to the laboratory for pathologic evaluation. The content of this report is essential for diagnosis and may provide important critical findings. This information may be unfamiliar to patients to review without a medical professional present. It is advised that the patient review this report in the presence of a health care provider who can answer questions and explain the details. Patient Name: ??KERI ZAVALATorie Address: ??[address], [place] [address] Gender: ??F : ??1990 (Age: 32) Service: ?? Location: ?? Hospital #: ??[id number] Patient Type: ??[facility] SPECIMEN Taken: ??10/16/2022 Reported: ??10/26/2022 Physician(s): ? MONO Cordero FINAL DIAGNOSIS: Specimen Type: A. ?? - ThinPrep Pap and HPV w/ reflex Genotyping: Statement of Specimen Adequacy: ? Source: ??Cervical/Endocervical ? - Satisfactory for interpretation ? - Endocervical /Transformation Zone component present ? - Case screened using computer assisted imaging technology and manually re-screened by a soil science professor. ? General Categorization: ? - Epithelial cell abnormality ? Interpretation: ? - Low grade squamous intraepithelial lesion (LSIL) ? - Specimen sent for HPV testing per physician order. ? as/10/26/2022 16:15Examining Pathologist: Elissa Duong CT (ASCP) Report Reviewed and Electronically Signed By ??Daniel Lakhani M.D.Clerical Data Follow A; G0145, 85371 Z12.4 ADDENDA: Addendum Comment ? Ancillary Testing: HPV High Risk Group (16, 18, 31, 33, 35, 39, 45, 51, 52, 56, 58, 59, 66 and 68) ? - Not Detected ? Reference Range: ? Not Detected This test was performed using the ILANA 4800 MAYKEL Vickers (ASCP) ??Date Ordered: ?10/26/2022 ?Status: ??Signed Out ?Date Complete: ?10/27/2022 ?By: ??MAYEKL Vickers (ASCP) ?Date Reported: ?10/27/2022 ? CLINICAL DIAGNOSIS AND HISTORY Last Menstrual Period: 09/28/2022 REPORT IMAGES AND/OR SCANNED DOCUMENTS ONLY VIEWABLE IN PDF FORMAT The Pap test is a screening test used to aid in the detection of cervical cancer and its precursors. It should not be the sole means by which malignant and premalignant lesions are diagnosed. ??Both false negative and false positive results may occur. ??It also has poor sensitivity for the detection of endometrial lesions and should not be used to evaluate suspected endometrial abnormalities. ??For these reasons it is most important to obtain Pap tests at regular intervals, as recommended by your physician or nurse practitioner. Jimena Ortiz BLUEPRINTER LAB CYTOLOGY ORDERABL ES Final Result PATHOLOGY [facility] Laboratory Receiving [address] [place] [address] from Last 3 Months or Most Recently Relevant to Health Maintenance Insurance [employer] MEDIC[employer] SOLUTIONS [facility] REF MEDICARE SOLUTIONS Advance Directives For more information, please contact: [phone] * Full Code (Latest Code Status on File) Date Activated Date Inactivated Comments 07/07/2023 7:34 PM 07/11/2023 4:06 PM * Full Code Date Activated Date Inactivated Comments 07/06/2023 9:38 PM 07/07/2023 7:34 PM Full CPR i n case of cardiopulmonary arrest * Full Code Date Activated Date Inactivated Comments 07/28/2021 2:50 PM 08/01/2021 7:24 PM * Full Code Date Activated Date Inactivated Comments 07/27/2021 11:15 PM 07/28/2021 2:50 PM Full CPR in case of cardiopulmonary arrest * Full Code Date Activated Date Inactivated Comments 10/26/2019 9:52 AM 10/26/2019 3:47 PM Care Teams Expansion Envelope Maker Hand Relationship Specialty Start Date End Date Lisa Mehta NP [address] [address] PCP - General Family Medicine 08/09/24 Syeda Vidal NP [address] [address] Nurse Practitioner Cardiovascular Disease 08/09/24 [facility] Obstetrics and Gynecology 07/26/24
--- OUTSIDE RECORDS SUMMARY | 2024-10-18 00:40 | XMS_ITS | Encounter Summary ---
Author Organization [facility] Address [address] [place] [address] Phone Care Team Providers Care Shear Grinder Operator Name Role Phone Lyndsey Warren MD Primary Care Provider [facility] Primary Care Provider [phone] No, Physician Primary Care Provider [facility] Primary Care Provider No, Physician Primary Care Provider [facility] Primary Care Provider No, Physician Primary Care Provider [facility] Primary Care Provider No, Physician Primary Care Provider [facility] Primary Care Provider Lyndsey Warren MD Primary Care Provider Lisa Mehta NP Primary Care Provider [phone] Syeda Gaviria NP Unavailable Reason for Referral * Cardiology (Routine) - Closed Specialty Diagnoses / Procedures Referred By Contac t Referred To Contact Diagnoses Palpitations History of pulmonic valve replacement Cardiomyopathy, unspecified type (HCC) Shortness of breath and not yet delivered, unspecified trimester Procedures Adult Congenital Transthoracic Echo Complete Elizabeth Alegria MD Phone: tel: fax: [facility] (All Locations) Referral ID Status Reason Start Date Expiration Date Visits Re quested Visits Authorized [id number] Closed 05/16/2021 06/15/2022 1 1 Encounter Details Date Type Department Care Team (Late st Contact Info) Description 05/16/2021 Telephone [facility] Cardiology [address] [facility] 8th [place] [address] [place] [address] Elizabeth Alegria MD [address] [facility] [address] [place] [address] Social History Tobacco Use Types Packs/Day Years Used Date Smoking Tobacco: Never Smokeless Tobacco: Never Alcohol Use Standard Drinks/Week Comments Not Currently 0 (1 standard drink = 0.6 oz pur e alcohol) AUDIT-C Answer Date Recorded Frequency of Alcohol Consumption 2-3 times a wee k 06/22/2019 Average Number of Drinks 1 or 2 019 Frequency of Binge Drinking Not on file 11/2018 PHQ-2 Answer Date Recorded PHQ-2 Score 1 06/22/2019 Comments Yes Sex and Gender Information Value Date Recorded Sex Assigned at Not on file Legal Sex Female 10:43 PM [employer] Gender Identity Female 12/06/2019 10:58 PM CDT Sexual Orientation Not on file 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 Not on file Not on camilo e documented as of this encounter Plan of Treatment Not on file documented as of this encounter Results * CONGENITAL TRANSTHORACIC ECHO (TTE) COMPLETE W DOPPLER/CF WO CONTRAST (06/12/2021 2:29 PM CDT) Anatomical Region Laterality Modality Ultrasound 06/12/2021 1:15 PM CDT Narrative 06/13/2021 7:35 AM CDT Patient name: Angie De Santiago Date of test: 06/12/2021 Type of test: TTE w/Doppler [facility] #: [id number] Date of : 1990 (F) Adobe Cq Developer: Meghna Longo [facility] Referring Physician: ELIZABETH ALEGRIA MD Contrast Agent: Contrast Administered by: Supervised/Interpreted by: Macho Toscano MD Diagnosis: Location: [facility] Reason for test: Palpitations; Hx of pulmonic valve replacement; Cardiomyopathy; Shortness of breath; MV Structure: Normal, ?MV Motion: Normal, ?? Mitral Annulus: Normal AV Structure: tricuspid and is Normal, ?? AV Motion: Normal Aotic root: dilated, ?TM: Normal, ?? PV: Bio-PVR Valvular Vegetations: none seen, ?Mass/Thrombi: none seen RA: Normal Measurements: ?M-Mode ?Normal ? Aotic Root: ? <3.8 ? LA: ? <3.8 ? RV: ? <2.8 ? LV(ED): ? <5.7 ? LV(ES): ? Variable ?2D Linear Normal ? Aotic Root: 3.7 cm ?<3.6 ? Ao Indexed: 2.1 cm/M2 <2.0 ? LA: ? <3.8 ? RV: ? 4.2 cm ?<4.2 ? LV(ED): ? 4.0 cm ?<5.3 ? LV(ES): ? 2.1 cm ?<3.5 ?2D Vol. ?? Normal ?Indexed ?? Indexed Normal RA: ? 41.0 ml ? 23.4 ml/M2 ?9-33 ? LA: ? 49.0 ml ? 28.0 ml/M2 ?16-34 ? RV: ? <11.6 ? LV(ED): ? 111.0 ml ??46-106 ?63.3 ml/M2 ?<62 ? LV(ES): ? 41.0 ml ?? 14-42 ? 23.4 ml/M2 ?<25 ?3D Vol. ? Indexed Normal LV(ED): ?<62 ? LV(ES): ?<24 ? LV EF: 63 % ?? (Normal: >=54%) ?? LV Septum: 1.0 cm ?(Normal: <0.9 cm) Wall Motion Scoring (1=Normal 2=Hypo 3=Akinetic 4=Dyskin./Aneurysm 0=Not visualized) Parasternal Long Llewellyn:MAS=1 BAS=1 MIL=1 NENA=1 Parasternal Short Llewellyn:MAS=1 MIS=1 AL=1 MIL=1 MAL=1 MA=1 Apical 4 Chambers:=1 MIS=1 BIS=1 BAL=1 MAL=1 AL=1 AC=1 Apical 2 Chambers:AI=1 AL=1 BI=1 BA=1 MA=1 AA=1 AC=1 LV Global Longitudinal Strain: -20% ??(Normal <-17%) RV Global Longitudinal Strain: -17.8% ??(Normal <-17%) LV Function: Normal LV Ejection Fraction, ??(EF=54-74%) RV Function: Normal Septal Motion: Normal Pericardial Effusion: none seen Atrial Septum: Normal DOPPLER/COLOR FLOW DOPPLER RESULTS: Diastolic Function: Normal Tricuspid Valve: mild TV regurgitation Pulmonic Valve: normal PV AV Regurgitation: No AR seen AV Stenosis: no AV Area: ??cm2 AV Pressure Gradient (mmHg): Mean: 0, Peak:0 MV Regurgitation: No MR seen MV Stenosis: no MS MV Area: ??cm2 MV Pressure Gradient (mmHg): Mean: 0 MV ERO: ??cm Regurg. Vol.: ??ml/beat Regurg. Frac.: ??% PA Pressure: 32 mmHg DOPPLER/COLOR FOLOW DOPPLER COMMENTS: No AR seen, No MR seen, no , no MS, mild TV regurgitation, normal PV. Diastolic function: Normal Peak PVR gradient=20 mm Hg SUMMARY: S/P TOF repair and PVR with peak gradient=18 mm hg. . LA is normal. Normal RV cavity size and function. Right heart wires are noted. ??LV cavity size is mildly dilated. Concentric LV remodeling and normal LVF; EF=63% with normal strain. PASP=29+RAP. Normal Inferior vena cava. Normal aorta.Since 01/2021, LV is no longer hyperdynamic Revised on ??06/13/2021 - 07:55:35 by Macho Toscano MD By signing this report, the attending sales development representative certifies that he or she has personally supervised and interpreted the echocardiogram and has reviewed and or edited and agrees with the written comments contained within the report. Procedure Note Macho Toscano MD - 06/13/2021 Patient name: Angie De Santiago Date of test: 06/12/2021 Type of test: TTE w/Doppler [facility] #: [id number] Date of : 1990 (F) Adobe Cq Developer: Meghna Longo MARGOT Referring Physician: ELIZABETH ALEGRIA MD Contrast Agent: Contrast Administered by: Supervised/Interpreted by: Macho Toscano MD Diagnosis: Location: [facility] Reason for test: Palpitations; Hx of pulmonic valve replacement; Cardiomyopathy; Shortness of breath; MV Structure: Normal, MV Motion: Normal, Mitral Annulus: Normal AV Structure: tricuspid and is Normal, AV Motion: Normal Aotic root: dilated, TM: Normal, PV: Bio-PVR Valvular Vegetations: none seen, Mass/Thrombi: none seen RA: Normal Measurements: M-Mode Normal Aotic Root: <3.8 LA: <3.8 RV: <2.8 LV(ED): <5.7 LV(ES): Variable 2D Linear Normal Aotic Root: 3.7 cm <3.6 Ao Indexed: 2.1 cm/M2 <2.0 LA: <3.8 RV: 4.2 cm <4.2 LV(ED): 4.0 cm <5.3 LV(ES): 2.1 cm <3.5 2D Vol. Normal Indexed Indexed Normal RA: 41.0 ml 23.4 ml/M2 9-33 LA: 49.0 ml 28.0 ml/M2 16-34 RV: <11.6 LV(ED): 111.0 ml 46-106 63.3 ml/M2 <62 LV(ES): 41.0 ml 14-42 23.4 ml/M2 <25 3D Vol. Indexed Normal LV(ED): <62 LV(ES): <24 LV EF: 63 % (Normal: >=54%) LV Septum: 1.0 cm (Normal: <0.9 cm) Wall Motion Scoring (1=Normal 2=Hypo 3=Akinetic 4=Dyskin./Aneurysm 0=Not visualized) Parasternal Long Llewellyn:MAS=1 BAS=1 MIL=1 NENA=1 Parasternal Short Llewellyn:MAS=1 MIS=1 AL=1 MIL=1 MAL=1 MA=1 Apical 4 Chambers:=1 MIS=1 BIS=1 BAL=1 MAL=1 AL=1 AC=1 Apical 2 Chambers:AI=1 AL=1 BI=1 BA=1 MA=1 AA=1 AC=1 LV Global Longitudinal Strain: -20% (Normal <-17%) RV Global Longitudinal Strain: -17.8% (Normal <-17%) LV Function: Normal LV Ejection Fraction, (EF=54-74%) RV Function: Normal Septal Motion: Normal Pericardial Effusion: none seen Atrial Septum: Normal DOPPLER/COLOR FLOW DOPPLER RESULTS: Diastolic Function: Normal Tricuspid Valve: mild TV regurgitation Pulmonic Valve: normal PV AV Regurgitation: No AR seen AV Stenosis: no AV Area: cm2 AV Pressure Gradient (mmHg): Mean: 0, Peak:0 MV Regurgitation: No MR seen MV Stenosis: no MS MV Area: cm2 MV Pressure Gradient (mmHg): Mean: 0 MV ERO: cm Regurg. Vol.: ml/beat Regurg. Frac.: % PA Pressure: 32 mmHg DOPPLER/COLOR FOLOW DOPPLER COMMENTS: No AR seen, No MR seen, no , no MS, mild TV regurgitation, normal PV. Diastolic function: Normal Peak PVR gradient=20 mm Hg SUMMARY: S/P TOF repair and PVR with peak gradient=18 mm hg. . LA is normal. Normal RV cavity size and function. Right heart wires are noted. LV cavity size is mildly dilated. Concentric LV remodeling and normal LVF; EF=63% with normal strain. PASP=29+RAP. Normal Inferior vena cava. Normal aorta.Since 01/2021, LV is no longer hyperdynamic Revised on 06/13/2021 - 07:55:35 by Macho Toscano MD By signing this report, the attending sales development representative certifies that he or she has personally supervised and interpreted the echocardiogram and has reviewed and or edited and agrees with the written comments contained within the report. us Elizabeth Farley MD CV ECHO ZEE ES Edited * Pro B-type natriuretic peptide (05/23/2021 2:23 PM CDT) NT-proBNP <50 <=300 pg/mL STU VILLATORO Comment: Interpretive Comments: A. Dyspnea in Acute [...] et.al. Eur Heart J. 2006:27:330-337. 2. Braeden SINGH, Orlin ZAMBRANO. J. AM Mark Cardiol: Cardiovasc Imag. 2009;2: 216- 225. Interpretive Data Last Revised Date: 2018. Blood 05/23/2021 2:23 PM CDT 05/23/2021 2:53 PM CDT Elizabeth Farley MD LAB BLOOD ORDERA BLES Final Result Performing Organization Address City/State/[facility] Co de Phone Number [facility] Department [place] [address] documented in this encounter Visit Diagnoses Diagnosis Palpitations- Primary History of pulmonic valve replacement Cardiomyopathy, unspecified type (HCC) Shortness of breath and not yet delivered in third trimester and not yet delivered, unspecified trimester Palpitations History of pulmonic valve replacement Cardiomyopathy, unspecified type (HCC) Shortness of breath and not yet delivered, unspecified trimester documented in this encounter Additional Health Concerns Infection Onset Date Last Indicated Resolved Time COVID: Suspected 08/09/2024 08/09/2024 08/09/2024 11:46 AM [employer] documented as of this encounter Care Teams Shear Grinder Operator Relationship Specialty Start Date End Date Lyndsey Warren MD [address] [place] [address] PCP - General Internal Medicine 05/30/19 06/12/21 [facility] [address] [place] [address] PCP - General 06/13/21 06/19/21 No, Physician PCP - General 06/20/21 06/26/21 [facility] [address] [place] [address] PCP - General 06/27/21 06/30/21 No, Physician PCP - General 07/01/21 07/03/21 [facility] [address] [place] [address] PCP - General 07/04/21 07/08/21 No, Physician PCP - General 07/09/21 07/10/21 [facility] [address] [place] [address] PCP - General 07/11/21 07/17/21 No, Physician PCP - General 07/18/21 07/25/21 [facility] [address] [place] [address] PCP - General 07/26/21 07/26/21 Lyndsey Warren MD [address] [place] [address] PCP - General 07/27/21 08/08/24 Lisa Mehta NP [address] [address] PCP - General Family Medicine 08/09/24 Syeda Gaviria NP [address] [address] Nurse Practitioner Cardiovascular Disease 08/09/24 [facility] Obstetrics and Gynecology 07/26/24 documented as of this encounter
--- OUTSIDE RECORDS SUMMARY | 2024-10-18 00:40 | XMS_ITS | Encounter Summary ---
Author Organization [facility] Address [address] [place] [address] Care Team Providers Care Etiquette Coach Name Role Phone Lisa Mehta NP Primary Care Provider [phone] Syeda Gaviria WATER TREATMENT PLANT MECHANIC Unavailable Reason for Visit * Reason Onset Date Comments Medical Question/Miscellaneous 10/17/2024 Encounter Details Date Type Department Care Team (Late st Contact Info) Description 10/17/2024 Telephone [facility] Medical Group Primary Care at [address] [address] Lisa Mehta NP [address] [place] [address] [address] [place] [address] Medical Question/Miscellaneous Social History Tobacco Use Types Packs/Day Years Used Date Smoking Tobacco: Never Cigarettes Smokeless Tobacco: Never Alcohol Use Standard Drinks/Week [...] week 07/08/2023 How often do you attend [facility] or spiritism services? More than 4 times per year 07/08/2023 Do you belong to any clubs o r organizations such as buddhism groups, unions, fraternal or athletic groups, or [...] place to sleep or slept in a jail (including now)? 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 Yes-Action Needed CRUSHER documented in this encounter Plan of Treatment Not on file documented as of this encounter Visit Diagnoses Not on filedocumented in this encounter Care Teams Etiquette Coach Relationship Specialty Start Date End Date Lisa Mehta NP [address] [facility] [address] [place] [address] PCP - General Family Medicine 08/09/24 Syeda Gaviria NP [address] [facility] [address] [place] [address] Nurse Practitioner Cardiovascular Disease 08/09/24 [facility] Obstetrics and Gyne[facility] 07/26/24 documented as of this encounter
--- OUTSIDE RECORDS SUMMARY | 2024-10-18 00:40 | XMS_ITS | Clinical Summary ---
Author Organization [facility] Address [address] [place] [address] Care Team Providers Care Bureau Chief Name Role Phone Lisa Mehta NP Primary Care Provider [phone] Syeda Vidal ACUTE CARE NURSE PRACTITIONER Unavailable Allergies No known active allergies Medications vit 42-msod-vcley-dha 27mg iron- 800 mcg-250 mg capsule Take [...] by mouth daily 84 tablet 3 08/18/20 23 Active aspirin 81 mg enteric coated tablet [...] 11/17/2022 Overview (06/02/2023): LTCS in G3 at [facility] for NRFS Plan desires TOLAC, s/p counseling regarding risk of uterine rupture and recommendation for epidural during labor Assessment & Plan (06/18/2023 10:06 AM CDT): LTCS in G3 at [facility] for NRFS Plan desires TOLAC, s/p [...] depression/anxiety Assessment & Plan (08/09/2024 12:33 PM NAILHEAD PUNCHER): Feels like anxiety has become more apparent [...] 04/26/2018 Assessment & Plan (07/31/2024 3:14 PM NAILHEAD PUNCHER): Stable denies increase in frequency. ICD (implantable cardioverter-defibrillator) in place 04/26/2018 Assessment & Plan (07/31/2024 3:12 PM NAILHEAD PUNCHER): Stable, no therapies. Sees Dr. Matos in August 2024. Assessment & Plan (09/03/2023 11:55 AM NAILHEAD PUNCHER): Stable, no therapies. Saw Dr. Matos in [...] of 2012, she subsequently received a single-chamber [employer] defibrillator system. This was originally implanted [...] again and asked to reschedule- echo completed- 9/29 [x] anesthesia consult 3rd trimester- complete - Serial growth ultrasounds starting at 24 weeks - Delivery by 39 weeks GA- requested Assessment & Plan (07/31/2024 3:17 PM NAILHEAD PUNCHER): ToF sp definitive repair in 1990, subsequent [...] months. Assessment & Plan (09/03/2023 11:57 AM NAILHEAD PUNCHER): ToF sp definitive repair in 1990, subsequent [...] of 2012, she subsequently received a single-chamber [employer] defibrillator system. This was originally implanted [...] of 2012, she subsequently received a single-chamber [employer] defibrillator system. ??This was originally implanted [...] of 2012, she subsequently received a single-chamber [employer] defibrillator system. This was originally implanted [...] # Disposition: Follow up task sent to [facility] scheduling pool. Desires discharge home today. History [...] trimester 11/17/2022 08/18/2023 Overview (07/01/2023): [x] Full [facility] Care; [x] Blue Team Referring Provider: Self Referral. Prior [facility] patient [] or Medicare Insurance [x] Dating [...] pp [x] Method of feeding: breast [x] Dispute Specialist: [x] PP Depression Discussed: s/p counseling, previously [...] pp [x] Method of feeding: breast [x] Dispute Specialist: [] PP Depression Discussed: Assessment & Plan [...] to bacterial vaginosis. - Rec f/u with hydrotreater operator if no improvement of sx. - urine [...] counseling. # Disposition: Follow up scheduled with MFM. Desires discharge home today. GBS (group B Streptococcus c arrsusan), +RV culture, currently 07/07/2021 11/17/2022 Gestational Diabetes- [...] diet recommendations. She is scheduled for diabetes ed/revenue liaison. We reviewed importance of tight glycemic control [...] Provider: Self Referral. (Primary OB Ann Proctor [phone]) [x] Dating Criteria: LMP 10/19/19 JANET 07/26/21 [...] pills [x] Method of feeding: breast [] Dispute Specialist: [] PP Depression Discussed: Assessment & Plan (07/25/2021 12:36 PM CDT): - IOL on 07/27/21 Assessment & Plan (07/21/2021 12:02 AM CDT): Aware she is GBS pos and will need PCN in labor. Secondary amenorrhea 08/25/2020 022 Assessment & Plan (08/25/2020 7:50 PM NAILHEAD PUNCHER): Given new acne, may be PCOS that was masked/ treated while on COCs. - bHCG negative in clinic today - Refer to hydrotreater operator Dark urine 08/25/2020 07/09/2021 Assessment & Plan (08/25/2020 7:52 PM NAILHEAD PUNCHER): UA to screen for hematuria with reflex [...] 12/01/2019 02/12/2023 Encounter for well woman ewelina m with routine gynecological exam 12/01/2019 05/28/2022 Assessment [...] monitor for now, will refer back to hydrotreater operator if recurrent. Assessment & Plan (12/01/2019 1:33 [...] 023 Assessment & Plan (08/13/2019 5:57 PM NAILHEAD PUNCHER): With regurgitation of undigested esophageal contents. Progressive [...] 05/28/2022 Assessment & Plan (08/13/2019 5:55 PM NAILHEAD PUNCHER): She admits to struggling to handle stressors. [...] dz Assessment & Plan (08/13/2019 5:57 PM NAILHEAD PUNCHER): Chronic, now improved. - Workup for dyspepsia [...] on EP study. She had ICD placement, [employer] Incepta in March 2012. She has had one episode of VT status post antitachycardia pacing in May 2014. No evidence of recurrent VT on most recent ICD interrogation and no atrial arrythmias on event monitoring. - Cont f/u with Dr. 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 She had ICD placement, [employer] Incepta in March 2012. She has had one episode of VT status post antitachycardia pacing in May 2014. No evidence of recurrent VT on most recent ICD interrogation and no atrial arrythmias on event monitoring. - Cont f/u with Dr. 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 06/22/2019 Encounters Date Type Department Care Team Description 10/17/2024 Telephone [facility] Primary Care at [address] [phone] Lisa Mehta NP Medical Question/Miscellane ous 10/04/2024 10:59 AM NAILHEAD PUNCHER - 10/04/2024 11:59 PM NAILHEAD PUNCHER Hospital Encounter [facility] Cardiac Diagnostic Lab [address] [facility] 8th [place] [address] Tetralogy of Fallot s/p repair Discharge Disposition: Discharge to home or self care 09/26/2024 Orders Only [facility] [address] [facility] 8th [place] [address] [place] [address] Jesse Matos MD 08/10/2024 Orders Only [facility] Primary Care at [address] [phone] Lisa Mehta NP 08/09/2024 8:48 PM NAILHEAD PUNCHER - 08/09/2024 11:59 PM NAILHEAD PUNCHER Hospital Encounter [address] [address] Iron deficiency; Vitamin D deficiency; Thyroid disorder screen; Lipid screening; Screening for endocrine, nutritional, metabolic and immunity disorder Discharge Disposition: Discharge to home or self care 08/09/2024 11:45 AM NAILHEAD PUNCHER Lab [facility] Outpatient Lab at [address] [phone] Anxiety with depression (Primary Dx) 08/09/2024 11:30 AM NAILHEAD PUNCHER Office Visit [facility] Primary Care at [address] [phone] Lisa Mehta NP Anxiety with depression (Primary Dx); Body aches; Iron deficiency; Screening for endocrine, nutritional, metabolic and immunity disorder; Lipid screening; Thyroid disorder screen; Vitamin D deficiency 07/31/2024 3:45 PM NAILHEAD PUNCHER Lab [facility] Endocrinology Metabolism and Lipid [address] [facility] [address] [place] [address] [place] [address] Tetralogy of Fallot s/p repair 07/31/2024 3:39 PM NAILHEAD PUNCHER - 07/31/2024 11:59 PM NAILHEAD PUNCHER Hospital Encounter [facility] [address] [place] [address] Tetralogy of Fallot s/p repair Discharge Disposition: Discharge to home or self care 07/31/2024 2:30 PM NAILHEAD PUNCHER Office Visit [facility] [address] [facility] 8[address] [place] [address] [place] [address] Syeda Vidal NP Tetralogy of Fallot s/p repair (Primary Dx); History of pulmonic valve replacement; ICD (implantable cardioverter-defibr illator) in place; Palpitations; Maternal Tetraology of Fallot S/P Repair W/ ICD in place from Last 3 Months Immunizations Name Administration Dates Next Due DTP [...] 03/03/2005 Tdap 05/06/2023, 1,12/01/2019,11/30,09/23/2006,09/23/2006 Varicella 03/22/2007, 7,1995,09/07 Surgical History Surgery Date Site/Laterality Comments HEART SURGERY 1990 - 09/19/1991 CARDIAC VALVE REPLACEMENT CARDIAC DEFIBRILLATOR PLACEMENT SECTION Medical History Medical History Date Comments Tetralogy of Fallot s/p repair I CD in place HSV (herpes simplex virus) infection PONV (postoperative nausea a nd vomiting) Dysphagia GERD (gastroesophageal reflu x disease) Gestational diabetes Gestational Diabetes- A1 05/27/2021 Diagnos ed 05/23 with abnormal 3 hour Will send supplies to start checking qid accu checks- will send to MFM RN weekly for review [x] counseling [x] diabetes education- completed 06/20 CURRENT REGIMEN: 07/10/21 Diet controlled - occ hyperglycemia from dietary indiscretion. Discussed again today use of exercise, decreasing carbs Supervision of high-risk pre gnancy, unspecified trimester 12/16/2020 [x] Full MFM Care; [] Red Te am [x] Blue Team Referring Provider: Self Referral. (Primary OB Ann Proctor [phone]) [x] Dating Criteria: LMP 10/19/19 JANET 07/26/21 [x] Labs: Rh [O pos], Ab [NEG ], Rubella [Immune], HIV [NR], HepBSAg [NR], RPR [NR], GC/CT [NEG/NEG] [x] Genetic Screening: FLK DS 1:6600, TRI 18 1:10K [x] CBC: 10.8/33.1/231K [x] Pap: 12/01/19 NILM [x] LD ASA (if ander GBS (group B Streptococcus c arrier), +RV culture, currently 07/07/2021 care following ce sarean delivery 07/27/2021 # ID: Afebrile. No signs/sym ptoms of infection. #COVID-19: Negative # Heme: EBL 1000 mL. Pre-op hgb 11.6 > POD#1 8.8. No symptoms acute blood loss anemia. D/C with home Fe # CV/Pulm: Vital signs stable, within normal limits. 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 Has ICD in place. Most recent ech 06/12 w EF 63%. BioPVR with Menstrual problem 2019 Family History Medical History Relation Name Comments Cancer Father Cruzito Lung cancer Father Cruzito Ovarian cancer Maternal Grandmother Emphysema Mother [place] Heart failure Mother Ada Hypertension Mother [place] Asthma Sister 1 La? Birgit Hypertension Sister 1 La? Birgit Obesity Sister 1 La? Birgit Allergy (severe) Sister 2 Rochonda Hypertension Sister 2 Rochonda Obesity Sister 2 Rochonda Thyroid disease Sister 2 Rochonda Allergy (severe) Son Chasity Breast cancer Neg Hx Colon cancer Neg Hx Uterine cancer Neg Hx Relation Name Status Comments Father Cruzito Maternal Grandmother Mother Ada Sister 1 La? Birgit Sister 2 Pina Son Chasity Social History Tobacco Use Types Packs/Day Years [...] 07/08/2023 How often do you attend chur or yazidism services? More than 4 times per year 07/08/2023 Do you belong to any clubs o r organizations such as christianity groups, unions, fraternal or athletic groups, or [...] in a jail (including now)? 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 Not on file Not on camilo e Obstetrics History Para Term AB IAB SAB Ectopic Multiple Livin g Live Births 4 4 4 0 4 4 Date Outcome GA Total Labor Labor/2nd/3rd Weight Sex Type Anes PTL Kiki A1 A5 Name Clin 2007 Term 39w 0d Vag-S pont 2014 Term 37w 0d Vag-S pont 2020 Term 39w 2d 12h 00m 8h 37m/3h 22m/0h 01m 3.55 kg (7 lb 13.2 oz) M CS-LT ranv Epidur al N Livin g 7 9 LILO ZAVALA , Carla saxena MD Complications:None Delivery Location:[facility] Main C ampus ([facility] L AND D PROCEDURE) 2022 Term 39w 2d 1h 11m 1h 07m/0h 04m 2.96 kg (6 lb 8.4 oz) F C-Sec tion Combin ed Spinal /Epidu ral N Livin g 4 9 NADER Agustin,GIR LIVANESS Lena Menon MD Complications: Intolera nce Delivery Location:[facility] Main C ampus ([facility] L AND D PROCEDURE) Last Filed Vital Signs Vital Sign Reading Time Taken Comments Blood Pressure 110/64 08/09/2024 11:24 AM NAILHEAD PUNCHER Pulse 78 08/09/2024 11:24 AM NAILHEAD PUNCHER Temperature 36.9 ??C (98.4 ??F) 08/09/2024 11:[address] Respiratory Rate 16 07/11/2023 7:55 AM CDT Oxygen Saturation 99% 08/09/2024 11:24 AM NAILHEAD PUNCHER Inhaled Oxygen Concentration - - Weight 61.2 kg (135 lb) 08/09/2024 11:24 AM NAILHEAD PUNCHER Height 157.5 cm (5' 2 ) 08/09/2024 11:24 AM NAILHEAD PUNCHER Body Mass Index 24.69 08/09/2024 11:24 AM NAILHEAD PUNCHER Plan of Treatment Health Maintenance Due Date Last Done Comments Cervical Cancer Screening 10/16/2023 10/16/2022 Regular Well Visit/Exam 18-64 10/16/2023 10/16/2022, 12/04/2021, 12/01/2019 Depression Screening 08/09/2025 08/09/2024, 08/18/2023, 05/28/2022, Additional history exists DTaP/Tdap/Td Vaccine (12 - Td or Tdap) 05/06/2033 05/06/2023, 05/15/2021, 12/01/2019, Additional history exists Varicella Vaccines Completed 03/22/2007, 0 03/22/2007, 1995, Additional history exists HPV Vaccines Completed 07/13/2007, 06/21, 07/13/2007, Additional history exists Pneumococcal vaccine <65 Aged Out 05/28/2022 No longer eligible based on patient's age to complete this topic Hepatitis C Screening Completed 12/14/2022 , 12/01/2019, 11/04/2012 Influenza Vaccine Completed 06/27/2024, , 07/23/2011, Additional history exists Procedures Procedure Name Priority Date/Time Associated Diagnosis Comments CONGENITAL TRANSTHORACIC ECHO (TTE) COMPLETE W DOPPLER/CF WO CONTRAST Routine 10/04/2024 11:58 AM NAILHEAD PUNCHER Tetralogy of Fallot s/p repair DEVICE CHECK - REMOTE Routine 09/26/2024 8:03 PM NAILHEAD PUNCHER EGFR Routine 08/09/2024 4:00 PM NAILHEAD PUNCHER Screening for endocrine, nutritional, metabolic and immunity disorder DIFFERENTIAL AUTO Routine 08/09/2024 4:0 0 PM NAILHEAD PUNCHER Iron deficiency CBC WITH AUTO DIFFERENTIAL Routine 08/09/2024 4:00 PM NAILHEAD PUNCHER Iron deficiency COMPREHENSIVE METABOLIC PANEL Routine 08/09/2024 4:00 PM NAILHEAD PUNCHER Screening for endocrine, nutritional, metabolic and immunity disorder LIPID PANEL Routine 08/09/2024 4:00 PM NAILHEAD PUNCHER Lipid screening THYROID FUNCTION CASCADE Routine 08/09/2024 4:00 PM NAILHEAD PUNCHER Thyroid disorder screen VITAMIN D 25 HYDROXY Routine 08/09/2024 4:00 PM NAILHEAD PUNCHER Vitamin D deficiency IRON PROFILE W/ IBC Routine 08/09/2024 4 :00 PM NAILHEAD PUNCHER Iron deficiency POC INFLUENZA A/B, COVID-19 ANTIGEN Routine 08/09/2024 11:45 AM NAILHEAD PUNCHER Body aches PRO B-TYPE NATRIURETIC PEPTIDE Routine 07/31/2024 6:17 PM NAILHEAD PUNCHER Tetralogy of Fallot s/p repair BASIC METABOLIC PANEL Routine 07/31/2024 3:39 PM NAILHEAD PUNCHER Tetralogy of Fallot s/p repair HEPATITIS C ANTIBODY Routine 12/14/2022 12:16 PM CDT Supervision of high-risk , first trimester PAP AND HIGH RISK HPV, REFLEX TO GENOTYPING Routine 10/16/2022 4:28 PM NAILHEAD PUNCHER Cervical cancer screening from Last 3 Months or Most Recently Relevant to Health Maintenance Results * CONGENITAL TRANSTHORACIC ECHO (TTE) COMPLETE W DOPPLER/CF WO CONTRAST (10/04/2024 11:58 AM NAILHEAD PUNCHER) LV EF % CONS SCIMAGE Anatomical Region Laterality Modality Ultrasound 10/04/2024 11:0 8 AM NAILHEAD PUNCHER Narrative 10/04/2024 3:19 PM NAILHEAD PUNCHER [facility] Cardiac [place] [address] [place] [address] Transthoracic Echocardiographic Report Patient Name: KERI HEBERT R ?? : 1990 (34y ) ??Gender: F Study Date: 10/04/2024 11:08:20 AM Ht(Inch): 62 ??Wt(Lb): 134.92 ??BSA: 1.64 Ceramic Worker: Melba Sorto RDCS ??Location: [facility] Order Provider: SYEDA VIDAL Heart Rate: 51 ??BMI: 24.67 ??BP: 114 / 60 Quality: The study images were of technically good quality. Ref Provider: SYEDA VIDAL ?? PROCEDURES: Echocardiographic Report: ([id number], [id number]) Transthoracic complete echo with strain imaging, 2D, [...] Dimension 4C ? 5.31 cm ?PV Accel [place] ?13.11 m/s LA Length 2C ?4.68 cm [...] Jorge Luis Galarza M.D. 10/04/2024 3:18:20 PM NAILHEAD PUNCHER Electronically Signed By: Jorge Luis Galarza M.D. 10/04/2024 3:18:20 PM NAILHEAD PUNCHER Procedure Note Jorge Luis Galarza MD - 10/04/2024 [facility] Cardiac [place] [address] [place] [address] Transthoracic Echocardiographic Report Patient Name: KERI HEBERT R : 1990 (34y ) Gender: F Study Date: 10/04/2024 11:08:20 AM Ht(Inch): 62 Wt(Lb): 134.92 BSA: 1.64 Ceramic Worker: Melba Sorto RDCS Location: [facility] Order Provider:SYEDA VIDAL Heart Rate: 51 BMI: 24.67 BP: 114 / 60 Quality: The study images were oftechnically good quality. Ref Provider: SYEDA VIDAL PROCEDURES: Echocardiographic Report: ([id number], [id number]) Transthoracic complete echo withstrain imaging, 2D, spectral [...] [ 46.00 - 106.00 ] MV Decel Ujqs054.97 msec [ 104.00 - 258.00 ] ESV [...] LA Dimension 2C 4.68 cm PV Accel Eetq365.57 msec [ 103.00 - 142.00 ] LA [...] cm/m2 [ 10.00 - 18.00 ] RA Fbfmje32.24 ml RA Volume Index14.78 ml/m2 AoR Diam [...] Jorge Luis Galarza M.D. 10/04/2024 3:18:20 PM NAILHEAD PUNCHER Electronically Signed By: Jorge Luis Galarza M.D. 10/04/2024 3:18:20 PM NAILHEAD PUNCHER Syeda Vidal NP CV ECHO PROCEDURES Final R esult * DEVICE CHECK - REMOTE (09/26/2024 8:03 PM NAILHEAD PUNCHER) Anatomical Region Laterality Modality Other 09/26/2024 8:03 PM NAILHEAD PUNCHER Narrative 09/27/2024 9:33 AM NAILHEAD PUNCHER Interpretation Summary: Battery and Leads (BL) Normal parameters noted on battery and lead(s) --- 2 ??years remaining (this is an estimate based on prior usage) Presenting Rhythm (FL) Ventricular Sensing (VS) --- rate 80 Transmission Information (TI) Device Summary Report Procedure Note Jesse Matos MD - 09/27/2024 Interpretation Summary: Battery and Leads (BL) Normal parameters noted on battery and lead(s) --- 2 years remaining(this is an estimate based on prior usage) Presenting Rhythm (FL) Ventricular Sensing (VS) --- rate 80 Transmission Information (TI) Device Summary Report Jesse Matos MD CV CARDIAC SERVICES PROCEDURES Final Result * eGFR (08/09/2024 4:00 PM NAILHEAD PUNCHER) eGFR >90 >=60 mL/min/1. 73 m2 Comment: [...] of Race in Diagnosing Kidney Disease, JASN 202). The CKD-EPI equation should not be used for patients with unstable renal function and has not been validated in children and those over 70. Current interpretive data was last reviewed 2021. Blood 08/09/2024 4:00 PM NAILHEAD PUNCHER 08/09/2024 9:36 PM NAILHEAD PUNCHER us Lisa Mehta NP LAB BLOOD ORDERABLES Final Resul t [address]U [address] Department [place] [address] * Differential, auto (08/09/2024 4:00 PM NAILHEAD PUNCHER) Neutrophil abs 4.1 1.5 - 6.5 K/cumm Imm gran abs 0.0 0.0 - 0.1 K/cumm [facility] Lymphocyte abs 1.1 0.8 - 3.3 K/cumm [facility] Monocyte abs 0.6 0.2 - 0.8 K/cumm [facility] Eosinophil abs 0.1 0.0 - 0.5 K/cumm [facility] Basophil abs 0.0 0.0 - 0.1 K/cumm [facility] Neutrophil pct 68.5 % [facility] Comment: Interpretive Data Percent cell count reference ranges are not reported, since discordance with absolute values may lead to misinterpretation of CBC data. Current Interpretive Data was last revised on 2017. Imm gran pct 0.2 % [facility] Comment: Interpretive Data Percent cell count reference ranges are not reported, since discordance with absolute values may lead to misinterpretation of CBC data. Current Interpretive Data was last revised on 2017. Lymphocyte pct 18.3 % [facility] Comment: Interpretive Data Percent cell count reference ranges are not reported, since discordance with absolute values may lead to misinterpretation of CBC data. Current Interpretive Data was last revised on 2017. Monocyte pct 10.2 % [facility] Comment: Interpretive Data Percent cell count reference ranges are not reported, since discordance with absolute values may lead to misinterpretation of CBC data. Current Interpretive Data was last revised on 2017. Eosinophil pct 2.3 % [facility] Comment: Interpretive Data Percent cell count reference ranges are not reported, since discordance with absolute values may lead to misinterpretation of CBC data. Current Interpretive Data was last revised on 2017. Basophil pct 0.5 % [facility] Comment: Interpretive Data Percent cell count reference ranges are not reported, since discordance with absolute values may lead to misinterpretation of CBC data. Current Interpretive Data was last revised on 2017. Blood 08/09/2024 4:00 PM NAILHEAD PUNCHER 08/09/2024 9:27 PM NAILHEAD PUNCHER Lisa Mehta ACUTE CARE NURSE PRACTITIONER LAB BLOOD ORDERABLES Final Resul t Performing Organization Address [facility] Co de Phone Number STU [place] [address] [address] [place] [address] * Thyroid Function [place] (08/09/2024 4:00 PM NAILHEAD PUNCHER) TSH 1.08 0.30 - 4.20 mcIUnit/mL Blood 08/09/2024 4:00 PM NAILHEAD PUNCHER 08/09/2024 9:27 PM NAILHEAD PUNCHER us Lisa Mehta ACUTE CARE NURSE PRACTITIONER LAB BLOOD ORDERABLES Final Resul t Performing Organization Address [facility] Co de Phone Number STU [place] [address] [address] [place] [address] * (ABNORMAL) Iron profile w/ IBC (08/09/2024 4:00 PM NAILHEAD PUNCHER) Pathologist [facility] Iron 58 35 - 145 mcg/dl TIBC 234(L) 250 - 400 mcg/dL [facility] Transferrin saturation 25 20 - 50 % [facility] Blood 08/09/2024 4:00 PM NAILHEAD PUNCHER 08/09/2024 9:27 PM NAILHEAD PUNCHER us Lisa Mehta ACUTE CARE NURSE PRACTITIONER LAB BLOOD ORDERABLES Final Resul t Performing Organization Address [facility] Co de Phone Number STU [place] [address] [address] [place] [address] * (ABNORMAL) CBC with auto differential (08/09/2024 4:00 PM NAILHEAD PUNCHER) Pathologist [facility] WBC 6.0 3.8 - 9.9 K/cumm Hgb 12.8 11.9 - 15.5 g/dL [facility] Hct 41.7 35.6 - 45.5 % [facility] Plt 195 150 - 400 K/cumm [facility] MPV 11.0 9.1 - 12.3 fL [facility] RBC 4.36 3.90 - 5.20 M/cumm [facility] MCV 95.6 81.3 - 96.4 fL [facility] MCH 29.4 27.1 - 33.3 pg [facility] MCHC 30.7(L) 32.3 - 35.7 g/dL [facility] RDW CV 12.6 11.1 - 14.9 % [facility] RDW SD 44.7 35.7 - 48.1 fL [facility] NRBC abs 0.00 0.00 - 0.01 K/cumm [facility] Blood 08/09/2024 4:00 PM NAILHEAD PUNCHER 08/09/2024 9:27 PM NAILHEAD PUNCHER Lisa Mehta ACUTE CARE NURSE PRACTITIONER LAB BLOOD ORDERABLES Final Resul t Performing Organization Address City/[facility]/ZIP Co de Phone Number STU CALD[place]LL [address] [address] [employer] [place], [place] [phone] * (ABNORMAL) Vitamin D 25 hydroxy (08/09/2024 4:00 PM NAILHEAD PUNCHER) Vitamin D 25-OH 15(L) 30 - 80 ng/mL Blood 08/09/2024 4:00 PM NAILHEAD PUNCHER 08/09/2024 9:27 PM NAILHEAD PUNCHER Lisa Mehta ACUTE CARE NURSE PRACTITIONER LAB BLOOD ORDERABLES Final Resul t Performing Organization Address [facility] de Phone Number STU [address] [employer] [place], [place] [phone] * Lipid panel (08/09/2024 4:00 PM NAILHEAD PUNCHER) Cholesterol 135 30 - 199 mg/dL Comment: [...] mg/dL ??High: ?>160 mg/dL Calculated using the Yoan LDL-C estimating equation. This equation was implemented on 2024. Prior to this date LDL-C was estimated using the Friedewald equation. Literature References: 1. Expert Panel on Integrated Guidelines for Cardiovascular Health and Risk Reduction in Children and Adolescents. Pediatrics 2011;128:S213 2. NCEP Expert Panel. Circulation 2004;110:227 3. Yoan Mendez et al. BEVERLEY Cardiol. 2020 January 18;5(5):540-548. doi: 10.1001/jamacardio.2020.0013 Current Interpretive Data was last revised on 2024. Non-HDL Cholesterol 86 mg/dL [facility] Comment: Interpretive Data Ages [...] last revised on 2018. Chol/HDL ratio 3 [facility] Blood 08/09/2024 4:00 PM NAILHEAD PUNCHER 08/09/2024 9:27 PM NAILHEAD PUNCHER us Lisa Mehta ACUTE CARE NURSE PRACTITIONER LAB BLOOD ORDERABLES Final Resul t [facility] [address] [place] [address] * Comprehensive metabolic panel (08/09/2024 4:00 PM NAILHEAD PUNCHER) Sodium 143 135 - 145 mmol/L Potassium, pl 3.5 3.3 - 4.9 mmol/L [facility] Chloride 104 97 - 110 mmol/L [facility] CO2 24 22 - 32 mmol/L [facility] Anion gap 15 2 - 15 mmol/L [facility] BUN 9 6 - 25 mg/dL [facility] Creatinine 0.76 0.60 - 1.10 mg/dL [facility] Glucose 76 70 - 199 mg/dL C[facility] [...] Units/L [facility] Blood 08/09/2024 4:00 PM NAILHEAD PUNCHER 08/09/2024 9:27 PM NAILHEAD PUNCHER us Lisa Mehta NP LAB BLOOD ORDERABLES Final Resul t [facility] [address] [place] [address] * POC Influenza A/B, COVID-19 antigen (08/09/2024 11:45 AM NAILHEAD PUNCHER) Pathologist [facility] Influenza A Ag, POC Negative Negative [facility] PCP FM EDW Influenza B Ag, POC Negative Negative [facility] PCP EDW COVID-19 Ag POC Presumptive Negative Presumptive Negative, Invalid [facility] PCP FM ED[facility] Nasopharyngeal 08/09/2024 11 :45 AM NAILHEAD PUNCHER us Lisa Mehta ACUTE CARE NURSE PRACTITIONER POINT OF CARE TEST ORDERABLES Fi nal Result [facility] PCP FM EDW [address] [place] [address], [facility] * Pro B-type natriuretic peptide (07/31/2024 6:17 PM NAILHEAD PUNCHER) [facility] NT-proBNP <50 <=300 pg/mL Comment: Interpretive Comments: [...] Revised Date: 2018. Blood 07/31/2024 6:17 PM NAILHEAD PUNCHER 07/31/2024 6:29 PM NAILHEAD PUNCHER us Syeda Vidal NP LAB BLOOD ORDERABLES Final Result [facility] Department [place] [address] * (ABNORMAL) Basic metabolic panel (07/31/2024 3:39 PM NAILHEAD PUNCHER) Pathologist [facility] Glucose 83 64 - 99 mg/dL [facility] [...] [facility] Blood 07/31/2024 3:39 PM NAILHEAD PUNCHER 07/31/2024 4:10 PM NAILHEAD PUNCHER us Syeda Vidal ACUTE CARE NURSE PRACTITIONER LAB BLOOD ORDERABLES Final Result [facility] CORE [facility] [...] AM CDT Performed at: ??01 - [facility] [address] ??[id number] Pantry Goods Maker: Salvador Pathak PhD, Phone: ??[phone] Naya Horowitz MD LAB MICROBIOLOGY - GEN ERAL ORDERABLES Final Result Performing Organization Address City/[facility]/ZIP Co de Phone Number [facility] - 01 * (ABNORMAL) Pap and High Risk HPV, reflex to Genotyping (10/16/2022 4:28 PM NAILHEAD PUNCHER) Thin prep (Pap test) 10/16/2022 4:28 PM NAILHEAD PUNCHER 10/22/2022 2:31 PM NAILHEAD PUNCHER Narrative PATHOLOGY [facility] - 10/26/2022 4:15 PM NAILHEAD PUNCHER EPIC results best viewed via link to PDF [address] ??[address] Tele: ?? Luz Mosher MD - Paper Core Machine Operator CYTOLOGY REPORT Note to Patients: This report [...] and explain the details. Patient Name: ??KERI ZAVALA Address: ??[address] [place], [place] [address] Gender: ??F : ??1990 (Age: 32) Service: ?? Location: ?? Hospital #: ??[id number] Patient Type: ??[facility] SPECIMEN Taken: ??10/16/2022 Reported: ??10/26/2022 Physician(s): ? MONO Cordero FINAL DIAGNOSIS: Specimen Type: A. ?? - ThinPrep Pap and HPV w/ reflex Genotyping: Statement of Specimen Adequacy: ? Source: ??Cervical/Endocervical ? - Satisfactory for interpretation ? - Endocervical /Transformation Zone component present ? - Case screened using computer assisted imaging technology and manually re-screened by a batting machine operator. ? General Categorization: ? - Epithelial cell abnormality ? Interpretation: ? - Low grade squamous intraepithelial lesion (LSIL) ? - Specimen sent for HPV testing per physician order. ? as10/26/2022 16:15Examining Pathologist: Elissa Duong CT (ASCP) Report Reviewed and Electronically Signed By ??Daniel Lakhani M.D.Clerical Data Follow A; G0145, 78177 Z12.4 ADDENDA: Addendum Comment ? Ancillary Testing: HPV High Risk Group (16, 18, 31, 33, 35, 39, 45, 51, 52, 56, 58, 59, 66 and 68) ? - Not Detected ? Reference Range: ? Not Detected This test was performed using the ILANA 4800 MAYKEL Vickers (ASCP) ??Date Ordered: ?10/26/2022 ?Status: ??Signed Out ?Date Complete: ?10/27/2022 ?By: ??MAYKEL Vickers (ASCP) ?Date Reported: ?10/27/2022 ? CLINICAL [...] recommended by your physician or nurse practitioner. us Jimena Ortiz ACUTE CARE NURSE PRACTITIONER LAB CYTOLOGY ORDERABL ES Final Result PATHOLOGY [facility] Laboratory Receiving [address] [place] [address] from Last 3 Months or Most Recently Relevant to Health Maintenance Insurance [employer] MEDICARE SOLUTIONS UHC MDCR HMO REF MEDICARE SOLUTIONS Advance Directives For more information, please contact: [phone] * Full Code (Latest Code Status on [...] 9:52 AM 10/26/2019 3:47 PM Care Teams Bureau Chief Relationship Specialty Start Date End Date Lisa Mehta NP [address] [facility] [address] [place] [address] PCP - General Family Medicine 08/09/24 Syeda Vidal NP [address] [facility] [address] [place] [address] Nurse Practitioner Cardiovascular Disease 08/09/24 [facility] Obstetrics and Gynecology 07/26/24
--- OUTSIDE RECORDS SUMMARY | 2024-10-18 00:40 | XMS_ITS | Encounter Summary ---
Author Organization [facility] Address [address] [facility] [place] [address] Phone Care Team Providers Care Fabricator Artificial Breast Name Role Phone Miscellaneous, Not In File Primary Care Provider Unavailable Jacqueline Varghese MD Primary Care Provider Unavaila ble Unknown, Notinfile Primary Care Provider Unavail able Jacqueline Varghese MD Primary Care Provider Unavaila ble Unknown, Notinfile Primary Care Provider Unavail able Jacqueline Varghese MD Primary Care Provider Unavaila ble Unknown, Notinfile Primary Care Provider Unavail able Jacqueline Varghese MD Primary Care Provider Unavaila ble Unknown, Notinfile Primary Care Provider Unavail able Jacqueline Varghese MD Primary Care Provider Unavaila ble Jacqueline Varghese MD Primary Care Provider Unavaila ble Unknown, Notinfile Primary Care Provider Unavail able Jacqueline Varghese MD Primary Care Provider Unavaila ble Unknown, Notinfile Primary Care Provider Unavail able Jacqueline Varghese MD Primary Care Provider Unavaila ble Unknown, Notinfile Primary Care Provider Unavail able Unknown, Notinfile Primary Care Provider Unavail able Jaqcueline Varghese MD Primary Care Provider Unavaila ble Lyndsey Warren MD Primary Care Provider Clinic, Pharmacist Assistant X. Primary Care Provider No, Physician Primary Care Provider [phone] Clinic, Pharmacist Assistant X. Primary Care Provider No, Physician Primary Care Provider [phone] Clinic, Pharmacist Assistant X. Primary Care Provider [phone] No, Physician Primary Care Provider [phone] Clinic, Pharmacist Assistant X. Primary Care Provider [phone] No, Physician Primary Care Provider [phone] Clinic, Pharmacist Assistant X. Primary Care Provider [phone] Lyndsey Warren MD Primary Care Provider Lisa Mehta NP Primary Care Provider [phone] Syeda Gaviria NP Unavailable [phone] Encounter Details Date Type Department Care Team (Late st Contact Info) Description 09/05/2013 Orders Only [facility] Provider, MD Jennifer [address] [place] [address] Social History Tobacco Use Types Packs/Day Years Used Date Smoking Tobacco: Never Assessed Comments Unknown Sex and Gender Information Value Date Recorded Sex Assigned at Not on file Legal Sex Female 10:43 PM BRANCH OPERATIONS MANAGER Gender Identity Female 12/06/2019 10:58 PM CDT Sexual Orientation Not on file documented as of this encounter Plan of Treatment Not on file documented as of this encounter Procedures Procedure Name Priority Date/Time Associated Diagnosis Comments CARDIOLOGY REPORT 09/05/2013 documented in this encounter Results * CARDIOLOGY REPORT (09/05/2013) Anatomical Region Laterality Modality Other Narrative 09/05/2013 Ordered by an unspecified provider. Historical Provider [facility] Final Result documented in this encounter Visit Diagnoses Not on filedocumented in this encounter Additional Health Concerns Infection Onset Date Last Indicated Resolved Time COVID: Suspected 08/09/2024 08/09/2024 08/09/2024 11:46 AM BRANCH OPERATIONS MANAGER documented as of this encounter Care Teams Fabricator Artificial Breast Relationship Specialty Start Date End Date Miscellaneous, Not In File PCP - General 01/13/17 02/02/17 Jacqueline Varghese MD PCP - General 02/03/17 05/03/17 Unknown, Notinfile PCP - General 05/04/17 05/11/17 Jacqueline Varghese MD PCP - General 05/12/17 05/12/17 Unknown, Notinfile PCP - General 05/13/17 05/13/17 Jacqueline Varghese MD PCP - General 05/14/17 10/13/17 Unknown, Notinfile PCP - General 10/14/17 10/17/17 Jacqueline Varghese MD PCP - General 10/18/17 10/18/17 Unknown, Notinfile PCP - General 10/19/17 10/23/17 Jacqueline Varghese MD PCP - General 10/24/17 10/24/17 Jacqueline Varghese MD PCP - General 10/25/17 10/25/17 Unknown, Notinfile PCP - General 10/26/17 10/31/17 Jacqueline Varghese MD PCP - General 11/01/17 11/01/17 Unknown, Notinfile PCP - General 11/02/17 11/17/17 Jacqueline Varghese MD PCP - General 11/18/17 12/16/17 Unknown, Notinfile PCP - General 12/17/17 12/19/17 Unknown, Notinfile PCP - General 12/20/17 01/02/18 Jacqueline Varghese MD PCP - General 01/03/18 05/29/19 Lyndsey Warren MD [address] [place] [address] PCP - General Internal Medicine 05/30/19 06/12/21 Clinic, Pharmacist Assistant [address] [place] [address] PCP - General 06/13/21 06/19/21 No, Physician PCP - General 06/20/21 06/26/21 Clinic, Pharmacist Assistant [address] [place] [address] PCP - General 06/27/21 06/30/21 No, Physician PCP - General 07/01/21 07/03/21 Clinic, Pharmacist Assistant [address] [place] [address] PCP - General 07/04/21 07/08/21 No, Physician PCP - General 07/09/21 07/10/21 Clinic, Pharmacist Assistant [address] [place] [address] PCP - General 07/11/21 07/17/21 No, Physician PCP - General 07/18/21 07/25/21 [facility], Pharmacist Assistant [address] [place] [address] PCP - General 07/26/21 07/26/21 Lyndsey Warren MD [address] [place] [address] PCP - General 07/27/21 08/08/24 Lisa Mehta NP [address] [address] PCP - General Family Medicine 08/09/24 Syeda Gaviria NP [address] [address] Nurse Practitioner Cardiovascular Disease 08/09/24 [facility] Obstetrics and Gynecology 07/26/24 documented as of this encounter
--- OUTSIDE RECORDS SUMMARY | 2024-10-18 00:40 | XMS_ITS | Encounter Summary ---
Author Organization [facility] Address [address] [place] [address] Phone Care Team Providers Care Service Delivery Manager Name Role Phone Miscellaneous, Not In File [...] Lyndsey Warren MD Primary Care Provider Clinic, School Office Manager X. Primary Care Provider No, Physician Primary Care Provider [phone] Clinic, School Office Manager X. Primary Care Provider [phone] No, Physician Primary Care Provider [phone] Clinic, School Office Manager X. Primary Care Provider [phone] No, Physician Primary Care Provider [phone] Clinic, School Office Manager X. Primary Care Provider [phone] No, Physician Primary Care Provider [phone] Clinic, School Office Manager X. Primary Care Provider [phone] Lyndsey Warren MD Primary Care Provider Lisa Mehta NP Primary Care Provider [phone] Syeda Gaviria NP Unavailable [phone] Encounter Details Date Type Department Care Team (Late st Contact Info) Description 07/02/2016 Orders Only [facility] Provider, MD Jennifer [address] [place] [address] Social History Tobacco Use Types Packs/Day Years Used Date Smoking Tobacco: Never Assessed Comments Unknown Sex and Gender Information Value Date Recorded Sex Assigned at Not on file Legal Sex Female 10:43 PM SENIOR SAS PROGRAMMER Gender Identity Female 12/06/2019 10:58 PM CDT Sexual Orientation Not on file documented as of this encounter Plan of Treatment Not on file documented as of this encounter Procedures Procedure Name Priority Date/Time Associated Diagnosis Comments CARDIOLOGY REPORT 07/02/2016 documented in this encounter Results * CARDIOLOGY REPORT (07/02/2016) Anatomical Region Laterality Modality Other Narrative 07/02/2016 Ordered by an unspecified provider. Historical Provider [facility] DONATO KEE Final Result documented in this encounter Visit Diagnoses Not on filedocumented in this encounter Additional Health Concerns Infection Onset Date Last Indicated Resolved Time COVID: Suspected 08/09/2024 08/09/2024 08/09/2024 11:46 AM SENIOR SAS PROGRAMMER documented as of this encounter Care Teams Service Delivery Manager Relationship Specialty Start Date End Date Miscellaneous, [...] 01/03/18 05/29/19 Lyndsey Warren MD [address] [place] [address] PCP - General Internal Medicine 05/30/19 06/12/21 Clinic, School Office Manager [address] [place] [address] PCP - General 06/13/21 06/19/21 No, Physician PCP - General 06/20/21 06/26/21 Clinic, School Office Manager [address] [place] [address] PCP - General 06/27/21 06/30/21 No, Physician PCP - General 07/01/21 07/03/21 Clinic, School Office Manager [address] [place] [address] PCP - General 07/04/21 07/08/21 No, Physician PCP - General 07/09/21 07/10/21 Clinic, School Office Manager [address] [place] [address] PCP - General 07/11/21 07/17/21 No, Physician PCP - General 07/18/21 07/25/21 [facility], School Office Manager [address] [place] [address] PCP - General 07/26/21 07/26/21 Lyndsey Warren MD [address] [place] [address] PCP - General 07/27/21 08/08/24 Lisa Mehta NP [address] [address] PCP - General Family Medicine 08/09/24 Syeda Gaviria NP [address] [address] Nurse Practitioner Cardiovascular Disease 08/09/24 [facility] Obstetrics and Gynecology 07/26/24 documented as of this encounter
--- OUTSIDE RECORDS SUMMARY | 2024-10-18 00:40 | XMS_ITS | Encounter Summary ---
Author Organization [facility] Address [address] [place] [address] Phone Care Team Providers Care Junior Network Engineer Name Role Phone Miscellaneous, Not In File [...] Lyndsey Warren MD Primary Care Provider Clinic, Quality Assurance Supervisor Chassis X. Primary Care Provider [phone] No, Physician Primary Care Provider [phone] Clinic, Quality Assurance Supervisor Chassis X. Primary Care Provider No, Physician Primary Care Provider [phone] Clinic, Quality Assurance Supervisor Chassis X. Primary Care Provider [phone] No, Physician Primary Care Provider [phone] Clinic, Quality Assurance Supervisor Chassis X. Primary Care Provider [phone] No, Physician Primary Care Provider [phone] Clinic, Quality Assurance Supervisor Chassis X. Primary Care Provider [phone] Lyndsey Warren MD Primary Care Provider Lisa Mehta NP Primary Care Provider [phone] Syeda Gaviria NP Unavailable [phone] Encounter Details Date Type Department Care Team (Late st Contact Info) Description 04/09/2015 Orders Only [facility] Provider, MD Jennifer [address] [place] [address] Social History Tobacco Use Types Packs/Day Years Used Date Smoking Tobacco: Never Assessed Comments Unknown Sex and Gender Information Value Date Recorded Sex Assigned at Not on file Legal Sex Female 10:43 PM PROJECT FACILITATOR Gender Identity Female 12/06/2019 10:58 PM CDT Sexual Orientation Not on file documented as of this encounter Plan of Treatment Not on file documented as of this encounter Procedures Procedure Name Priority Date/Time Associated Diagnosis Comments CARDIOLOGY REPORT 04/09/2015 documented in this encounter Results * CARDIOLOGY REPORT (04/09/2015) Anatomical Region Laterality Modality Other Narrative 04/09/2015 Ordered by an unspecified provider. Historical Provider [facility] DONATO KEE Final Result documented in this encounter Visit Diagnoses Not on filedocumented in this encounter Additional Health Concerns Infection Onset Date Last Indicated Resolved Time COVID: Suspected 08/09/2024 08/09/2024 08/09/2024 11:46 AM PROJECT FACILITATOR documented as of this encounter Care Teams Junior Network Engineer Relationship Specialty Start Date End Date Miscellaneous, [...] 01/03/18 05/29/19 Lyndsey Warren MD [address] [place] [address] PCP - General Internal Medicine 05/30/19 06/12/21 Clinic, Quality Assurance Supervisor Chassis [address] [place] [address] PCP - General 06/13/21 06/19/21 No, Physician PCP - General 06/20/21 06/26/21 Clinic, Quality Assurance Supervisor Chassis [address] [place] [address] PCP - General 06/27/21 06/30/21 No, Physician PCP - General 07/01/21 07/03/21 Clinic, Quality Assurance Supervisor Ch[address] [place] [address] PCP - General 07/04/21 07/08/21 No, Physician PCP - General 07/09/21 07/10/21 Clinic, Quality Assurance Supervisor Chassis [address] [place] [address] PCP - General 07/11/21 07/17/21 No, Physician PCP - General 07/18/21 07/25/21 [facility], Quality Assurance Supervisor Chassis [address] [place] [address] PCP - General 07/26/21 07/26/21 Lyndsey Warren MD [address] [place] [address] PCP - General 07/27/21 08/08/24 Lisa Mehta NP [address] [address] PCP - General Family Medicine 08/09/24 Syeda Gaviria NP [address] [address] Nurse Practitioner Cardiovascular Disease 08/09/24 [facility] Obstetrics and Gynecology 07/26/24 documented as of this encounter
--- OUTSIDE RECORDS SUMMARY | 2024-10-18 00:40 | XMS_ITS | Encounter Summary ---
Author Organization [facility] Address [address] [place] [address] Phone Care Team Providers Care Drive Shaft And Steering Post Repairer Name Role Phone Miscellaneous, Not In File [...] Lyndsey Warren MD Primary Care Provider Clinic, Scene Shifter X. Primary Care Provider No, Physician Primary Care Provider [phone] Clinic, Scene Shifter X. Primary Care Provider No, Physician Primary Care Provider [phone] Clinic, Scene Shifter X. Primary Care Provider [phone] No, Physician Primary Care Provider [phone] Clinic, Scene Shifter X. Primary Care Provider [phone] No, Physician Primary Care Provider [phone] Clinic, Scene Shifter X. Primary Care Provider [phone] Lyndsey Warren MD Primary Care Provider Lisa Mehta NP Primary Care Provider [phone] Syeda Gaviria NP Unavailable [phone] Encounter Details Date Type Department Care Team (Late st Contact Info) Description 08/28/2015 Orders Only [facility] Provider, MD Jennifer [address] [place] [address] Social History Tobacco Use Types Packs/Day Years Used Date Smoking Tobacco: Never Assessed Comments Unknown Sex and Gender Information Value Date Recorded Sex Assigned at Not on file Legal Sex Female 10:43 PM EDGE CUTTER Gender Identity Female 12/06/2019 10:58 PM CDT Sexual Orientation Not on file documented as of this encounter Plan of Treatment Not on file documented as of this encounter Procedures Procedure Name Priority Date/Time Associated Diagnosis Comments CARDIOLOGY REPORT 08/28/2015 documented in this encounter Results * CARDIOLOGY REPORT (08/28/2015) Anatomical Region Laterality Modality Other Narrative 08/28/2015 Ordered by an unspecified provider. Historical Provider [facility] C[facility]IAC [facility] DONATO KEE Final Result documented in this encounter Visit Diagnoses Not on filedocumented in this encounter Additional Health Concerns Infection Onset Date Last Indicated Resolved Time COVID: Suspected 08/09/2024 08/09/2024 08/09/2024 11:46 AM EDGE CUTTER documented as of this encounter Care Teams Drive Shaft And Steering Post Repairer Relationship Specialty Start Date End Date Miscellaneous, [...] 01/03/18 05/29/19 Lyndsey Warren MD [address] [place] [address] PCP - General Internal Medicine 05/30/19 06/12/21 Clinic, Scene Shifter [address]. [address] [place] [address] PCP - General 06/13/21 06/19/21 No, Physician PCP - General 06/20/21 06/26/21 Clinic, Scene Shifter [address] [place] [address] PCP - General 06/27/21 06/30/21 No, Physician PCP - General 07/01/21 07/03/21 Clinic, Scene Shifter [address] [place] [address] PCP - General 07/04/21 07/08/21 No, Physician PCP - General 07/09/21 07/10/21 Clinic, Scene Shifter [address] [place] [address] PCP - General 07/11/21 07/17/21 No, Physician PCP - General 07/18/21 07/25/21 [facility], Scene Shifter [address] [place] [address] PCP - General 07/26/21 07/26/21 Lyndsey Warren MD [address] [place] [address] PCP - General 07/27/21 08/08/24 Lisa Mehta NP [address] [address] PCP - General Family Medicine 08/09/24 Syeda Gaviria NP [address] [address] Nurse Practitioner Cardiovascular Disease 08/09/24 [facility] Obstetrics and Gynecology 07/26/24 documented as of this encounter
[2024-10-18 00:43] VITALS: BP 115/56; PULSE 59; RESP 17; TEMP 36.4; O2SAT 100
[2024-10-18 01:05] LABS: Basophils Absolute Auto 0.1 K/mm3 (0.0-0.1); Basophils Percent Auto 0.5 % (0.2-1.2); Eosinophils Absolute Auto 0.3 K/mm3 (0-0.3); Eosinophils Percent Auto 2.3 % (0-4.4); Immature Granulocyte Absolute 0.04 K/mm3 (0.00-0.031); Immature Granulocyte Percent A 0.3 % (0-0.5); Lymphocytes Absolute Auto 1.04 K/mm3 (0.9-3.2); Lymphocytes Percent Auto 7.9 % (18.3-44.2); Mean Corpuscular HGB Conc 32.4 g/dl (32-36); Mean Corpuscular Hemoglobin 30.5 pg (26-34); Mean Corpuscular Volume 94.1 fl (80-100); Monocytes Absolute Auto 0.7 K/mm3 (0.1-0.6); Monocytes Percent Auto 5.3 % (2.6-8.5); Neutrophils Percent Auto 83.7 % (45.5-73.1); Platelet Count Result 215 k/mm3 (150-375); Red Blood Count 3.93 M/mm3 (4.2-5.4); Red Cell Distribution Width 12.6 % (11.5-14.5); White Blood Count 13.2 K/mm3 (4.5-10.0)
[2024-10-18 01:14] LABS: Alanine Aminotransferase 91 U/L (6-35); Albumin Level 4.3 g/dL (3.5-5.1); Alkaline Phosphatase 88 U/L (38-126); Anion Gap 9 mmol/L (4-12); Aspartate Amino Transferase 200 U/L (14-36); Blood Urea Nitrogen 12 mg/dL (7-17); Calcium 8.3 mg/dL (8.4-10.2); Carbon Dioxide 28 mmol/L (22-30); Chloride 103 mmol/L (98-107); Estimated CRCL calculation 82 ml/min; Estimated Glomerular Filt Rate > 60; Glucose 163 mg/dL (65-110); Lipase 56 U/L (23-300); Potassium 3.6 mmol/L (3.4-5.0); Sodium 140 mmol/L (137-145)
[2024-10-18 01:41] LABS: Influenza A QL RT-PCR Negative (Negative); Influenza B QL RT-PCR Negative (Negative); RSV RNA, RT-PCR Negative (Negative); SARS-CoV-2 RNA PCR Negative (Negative)
[2024-10-18 03:34] VITALS: BP 105/63; PULSE 87; RESP 20; O2SAT 100
[2024-10-18 05:01] VITALS: BP 112/71; PULSE 78; O2SAT 99
[2024-10-18 05:50] LABS: BEDSIDEPREGUCG Negative (Negative)
[2024-10-18 05:58] LABS: Add Urine Microscopic? YES; Appearance Urine Cloudy (Clear); Bacteria Urine Rare /hpf; Bilirubin Urine Negative (Negative); Blood Urine Negative (Negative); Color Urine Dark Yellow (Yellow); Glucose Urine UA Trace mg/dL (Negative); Ketones Urine Trace mg/dL (Negative); Leukocyte Esterase Ur 2+ LEU/UL (Negative); Nitrate Urine Negative (Negative); Non Pathogenic Casts 0-2; Protein Urine Trace mg/dL (Negative); RBC Urine 0-2 /hpf (0-2); Specific Grav Ur 1.027 (1.001-1.035); Squamous Epithelial Cell Urine Occasional /hpf (Few); WBC Urine >100 /hpf (0-3); pH Urine 5.5 (5.0-9.0)
[2024-10-18 06:02] LABS: Troponin I < 0.012 ng/mL (0.000-0.034)
--- NOTE | 2024-10-18 06:17 | ED_ITS ---
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 Patient also has a history of PCOS. Today she presents to the emergency room with chief complaint of back pain that started radiating towards her abdominal region and into her chest. She states the symptoms started yesterday, has never happened to her before. Denies any trauma or injuries. Denies any difficulty breathing, nausea vomiting. She had 1 episode loose diarrhea earlier today. She states she has she has been here in the ED her symptoms have slowly down and now only having low back pain. Denies any recent hospital visits or any other concerns in her health. No new medication changes. Related Data Home Medications ?Medication ?Instructions ?Recorded ?Confirmed ?Last Taken ?Type aspirin 81 mg chewable tablet 81 mg PO DAILY 04/05/24 08/30/24 Unknown History bupropion HCl 150 mg 24 hr tablet, 150 mg PO QAM 04/05/24 08/30/24 Unknown History extended release ergocalciferol (vitamin D2) 50 mcg 50 mcg PO ONCE 08/30/24 08/30/24 Unknown History (2,000 unit) capsule ferrous sulfate 325 mg (65 mg 325 mg PO DAILY 08/30/24 08/30/24 Unknown History iron) tablet inulin 2 gram chewable tablet g PO 08/30/24 08/30/24 Unknown History (Fiber Gummies) multivitamin (Daily Multi-Vitamin 1 tablet PO DAILY 08/30/24 08/30/24 Unknown History tablet) Allergies Allergy/AdvReac Type Severity Reaction Status Date / Time No Known Allergies Allergy Verified 08/30/24 14:43 Review of Systems 2 Review of Systems: As [facility] Past Medical History Medical History Fallot tetralogy History of pacemaker Surgical History Surgical History Heart valve replaced History of colposcopy History of delivery Family History Family History Mother Depression Heart disease Hypertension Father Cancer Depression Sibling Depression Hypertension Thyroid condition Grandparent Heart disease Social History Social History Smoking status: Never smoker Substance use: never Exam 2 Narrative: GENERAL: [Well-appearing, well-nourished, and in no acute distress.] HEAD: [Normocephalic, atraumatic.] EYES: [PERRLA and EOMI.] ENT: Nares clear, no rhinorrhea or epistaxis. Mucous membranes moist. NECK: Supple. CHEST: [Clear to auscultation. No respiratory distress.] HEART: [Regular rate and rhythm]. No murmur heard. [Normal peripheral pulses.] ABDOMEN: [Soft, nondistended], [nontender], [No rigidity or guarding] EXTREMITIES: Normal range of motion. [No edema.] SKIN: Warm, dry, no rash. NEURO: [No focal deficits]. Alert and oriented [x3.] PSYCH: [Normal mood and affect.] Course Vital Signs Vital signs: Vital Signs Temperature 36.4 C 10/18/24 00:43 Pulse Rate 59 L 10/18/24 00:43 Respiratory Rate 17 10/18/24 00:43 Blood Pressure 115/56 L 10/18/24 00:43 Pulse Oximetry 100 10/18/24 00:43 Temperature 36.4 C 10/18/24 00:43 Pulse Rate 72 10/18/24 06:25 Respiratory Rate 17 10/18/24 06:25 Blood Pressure 110/68 10/18/24 06:25 Pulse Oximetry 100 10/18/24 06:25 MDM - Abdominal Pain MDM Narrative Medical decision making narrative: 34-year-old female with complex cardiac history including tetralogy of Fallot status post repair, AICD pacemaker, PCOS. Today she presents the emergency room with vague complaints of back pain that started in her low lumbar region, radiated towards her epigastric region and into her chest. Symptoms started yesterday. Denies any nausea, vomiting or urinary complaints. Denies any chance of . She states that the chest and abdominal pain have slowly subsided but she is still having persistent lumbar pain. Denies any injuries or trauma. She has a soft nontender nondistended abdomen, 2+ pulses throughout all extremities. Vital signs are reassuring without any tachycardia, fever, hypoxia or blood pressure concerns. Given her significant cardiac risk factors and pain that crosses from the back into the chest considerations presently are for potential intra-abdominal or thoracic process, possibility of aortic process, less likely ACS. A broad workup was ordered including laboratory assessments such as CBC, CMP, troponin, urinalysis, test, COVID, flu, RSV swabs and a CT scan of the chest abdomen and pelvis. Patient's pain is tolerable right now and she does not require any analgesia according to herself. Workup shows a minor leukocytosis of 13.2, normal hemoglobin, no anemia or platelet concerns. Electrolytes all within normal limits, normal renal function panel. LFTs mildly elevated at 200 AST, 91 ALT, normal alk-phos. Normal bilirubin. Negative troponin. Negative lipase. Urinalysis with greater than 100 white blood cells and 2+ leukocyte esterase consistent with a urinary tract infection. test is negative. EKG shows a right bundle branch block with marked axis deviation likely secondary from her tetralogy and pacemaker. No ST segment elevations or depressions concerning for an acute ischemic event. No previous EKG for comparison. Patient was provided a prescription for Augmentin based on her previous culture results and given a dose here. She was given tramadol for her low back pain as needed. Her CT scan of the chest abdomen pelvis shows no acute process. Patient safe and stable for discharge home at this time with prescriptions and all her questions were answered. Medical Records Attestation: I reviewed the patient's medical records. Lab Data Attestation: I reviewed the patient's lab results. 10/18/24 00:58 10/18/24 00:58 Labs: Lab Results 10/18/24 10/18/24 10/18/24 Range/Units 00:58 05:45 05:49 WBC 13.2 H (4.5-10.0) K/mm3 RBC 3.93 L (4.2-5.4) M/mm3 Hgb 12.0 (12.0-15.0) g/dL Hct 37.0 (37.0-47.0) % MCV 94.1 (80-100) fl MCH 30.5 (26-34) pg MCHC 32.4 (32-36) g/dl RDW 12.6 (11.5-14.5) % Plt Count 215 (150-375) k/mm3 MPV 10.0 (7.4-10.4) fl Immature Gran % (Auto) 0.3 (0-0.5) % Neut % (Auto) 83.7 H (45.5-73.1) % Lymph % (Auto) 7.9 L (18.3-44.2) % [place] % (Auto) 5.3 (2.6-8.5) % Eos % (Auto) 2.3 (0-4.4) % Baso % (Auto) 0.5 (0.2-1.2) % Lymph # (Auto) 1.04 (0.9-3.2) K/mm3 [place] # (Auto) 0.7 H (0.1-0.6) K/mm3 Eos # (Auto) 0.3 (0-0.3) K/mm3 Baso # (Auto) 0.1 (0.0-0.1) K/mm3 Abs Immat Gran (auto) 0.04 H (0.00-0.031) K/mm3 Absolute Neuts (auto) 11.0 H (1.3-6.7) K/mm3 Absolute Nucleated RBC 0.000 (0.0-0.012) K/mm3 Nucleated RBC % 0.0 (0.0-0.2) % Sodium 140 (137-145) mmol/L Potassium 3.6 (3.4-5.0) mmol/L Chloride 103 (98-107) mmol/L Carbon Dioxide 28 (22-30) mmol/L Anion Gap 9 (4-12) mmol/L BUN 12 (7-17) mg/dL Creatinine 0.71 (0.7-1.0) mg/dL Estim Creat Clear Calc 82 ml/min Estimated GFR > 60 (59 - ) Glucose 163 H (65-110) mg/dL Calcium 8.3 L (8.4-10.2) mg/dL Total Bilirubin 1.0 (0.2-1.3) mg/dL AST 200 H (14-36) U/L ALT 91 H (6-35) U/L Alkaline Phosphatase 88 (38-126) U/L Troponin I < 0.012 (0.000-0.034) ng/mL Total Protein 7.0 (6.3-8.2) g/dL Albumin 4.3 (3.5-5.1) g/dL Lipase 56 (23-300) U/L Urine Color Dark yellow (Yellow) Urine Appearance Cloudy H (Clear) Urine pH 5.5 (5.0-9.0) Ur Specific [place] 1.027 (1.001-1.035) Urine Protein Trace (Negative) mg/dL Urine Glucose (UA) Trace H (Negative) mg/dL Urine Ketones Trace H (Negative) mg/dL Ur Blood (Man) Negative (Negative) Urine Nitrate Negative (Negative) Urine Bilirubin Negative (Negative) Urine Urobilinogen 1.0 (<2.0) mg/dL Leukocyte Esterase Rfl 2+ H (Negative) FELIPA/UL Urine RBC 0-2 (0-2) /hpf Urine WBC >100 H (0-3) /hpf Ur Squamous Epith Cells Occasional (Few) /hpf Urine Bacteria Rare /hpf Urine Casts 0-2 POC Urine HCG, Qual Negative (Negative) Influenza A (RT-PCR) Negative (Negative) Influenza B (RT-PCR) Negative (Negative) RSV (RT-PCR) Negative (Negative) SARS-CoV-2 RNA (RT-PCR) Negative (Negative) Imaging Data Attestation: I personally reviewed and interpreted this imaging study as follows: Radiologist's impression: ITS Impressions Chest/Abdomen/Pelvis CT 10/18/24 06:32 IMPRESSION: 1. No acute abnormality of the chest or abdomen. Discharge Plan Discharge Clinical Impression: Urinary tract infection, Back pain Patient Disposition: Home, Self-Care Condition: Stable Instructions: Antibiotic Form, Urinary Tract Infection in Women (ED) Additional Instructions: Your workup today was very reassuring, we did find that you have a urinary tract infection and we will treat you with an appropriate antibiotic for the next week. Please take this antibiotic as prescribed twice daily for the next 7 days. We also send you home with some pain control medications as needed. Follow-up with your regular doctor, return with any new or worsening concerns at any time. Patient Language: Kiswahili Prescriptions: New tramadol 25 mg tablet 25 mg PO Q6H PRN (Reason: pain) Qty: 14 0RF ondansetron 4 mg tablet,disintegrating 4 mg PO Q8H PRN (Reason: nausea and vomiting) Qty: 10 0RF amoxicillin-pot clavulanate 875-125 mg tablet 1 tablet PO Q12H 7 Days Qty: 14 0RF No Action bupropion HCl 150 mg tablet extended release 24 hr 150 mg PO QAM aspirin 81 mg tablet,chewable 81 mg PO DAILY multivitamin [Daily Multi-Vitamin] Tablet 1 tablet PO DAILY ergocalciferol (vitamin D2) 50 mcg (2,000 unit) capsule 50 mcg PO ONCE Rx Instructions: weekly ferrous sulfate 325 mg (65 mg iron) tablet 325 mg PO DAILY Fiber Gummies 2 gram tablet,chewable PO norethindrone (contraceptive) 0.35 mg tablet 0.35 mg PO DAILY Qty: 84 4RF Follow-up/Referrals: Tyson,Lisa Patricio APRN [Primary Care Provider] - Time of Disposition: 06:44
[2024-10-18 06:25] VITALS: BP 110/68; PULSE 72; RESP 17; O2SAT 100
[2024-10-18] MEDS: AMOXICILLIN/CLAVULANATE K 875-125 MG TAB 1 TABLET PO (07:00)
== END 2024-10-18 07:00 | disposition home or self-care (01) ==
PROVIDERS: Emergency Provider Student in an Organized Health Care Education/Training Program; PCP Nurse Practitioner Family
DX: N39.0 Urinary tract infection, site not specified (principal); M54.50 Low back pain, unspecified; Z20.822 Contact with and (suspected) exposure to COVID-19; I45.10 Unspecified right bundle-branch block; Z95.1 Presence of aortocoronary bypass graft; Z95.810 Presence of automatic (implantable) cardiac defibrillator; Z95.2 Presence of prosthetic heart valve; Z87.74 Personal history of (corrected) congenital malformations of heart and circulatory system
CPT/HCPCS: 36415; 71260; 74177; 80053; 81001; 81025; 83690; 84484; 85025; 87086; 87637; 93005; 99284; A9270; Q9967